=== PATIENT | male | born 1965 | race Caucasian/White ===

== ENCOUNTER 2017-05-15 14:07 | Inpatient (IN) | payer OTHER ==
[2017-05-15 19:08] VITALS: BMI 25.9
--- NOTE | 2017-05-15 22:51 | HP ---
CIWA Score - CIWA Score Nausea/Vomitin-Mild Nausea/No Vomiting Muscle Tremors: 4-Moderate,w/Arms Extend Anxiety: 4-Mod. Anxious/Guarded Agitation: 0-Normal Activity Paroxysmal Sweats: No Perspiration (feels cold) Orientation: 2-Disoriented Date<2 days Tacttile Disturbances: 2-Mild Itch/Numbness/Burn (hands and feet) Auditory Disturbances: 2-Mild Harshness/Frighten Visual Disturbances: 2-Mild Sensitivity Headache: 3-Moderate CIWA-Ar Total Score: 20 Admission ROS S - HPI Chief Complaint: I have a headache, I feel jittery, I have diarrhea and puking, 4 night without sleeping, I am here to detox. Allergies/Adverse Reactions: Allergies Allergy/AdvReac Type Severity Reaction Status Date / Time aripiprazole [From Abilify] Allergy Verified 05/15/17 23:30 chlorpromazine Allergy Verified 05/15/17 23:30 [From Thorazine] haloperidol [From Haldol] Allergy Verified 05/15/17 23:30 History of Present Illness: 51 yo male with nicotine, cocaine, alcohol and K2 dependence is here seeking detox. PHMX: SVT, peptic ulcer, GERD, Irritable Syndrome, migraines, seizure unspecified, Hypoglycemia, depression with oswald schizophrenia with psychotic features. Reports hx of OCD and self inflicting injuries due to cutting. Reports was just in coma for 15 days d/t a seizure related to drinking was discharged [facility] March 2017, patient unable to specified date. Last detox completed February 2017, does not recall the name of the facility. Report suffers from delirium when going through detox. Longest period of sobriety 11 months. Denies suicide / homicidal ideation, reports September 16, 2016 attempted suicide by cutting wrist. Exam Limitations: No Limitations - Ebola screening Have you traveled outside of the country in the last 21 days: No (N) Have you had contact with anyone from an Ebola affected area: No Have you been sick,other than usual withdrawal symptoms: No Do you have a fever: No - Review of Systems Constitutional: Chills, Loss of Appetite, Changes in sleep (reports 4 days without sleep), Unintentional Wgt. Loss (30 lb past 30 days d/t chronic diarrhea and vomitting) EENT: reports: Blurred Vision (wears glasses), Dental Problems (missing multiple teeth) Respiratory: reports: Cough (x 7 week), Productive cough Cardiac: reports: No Symptoms Reported GI: reports: Diarrhea, Nausea, Poor Appetite, Poor Fluid Intake, Vomiting : reports: No Symptoms Reported Musculoskeletal: reports: Joint Pain Integumentary: reports: No Symptoms Reported Neuro: reports: See HPI, Headache, Numbness (hands and feet), Tingling Endocrine: reports: No Symptoms Reported Hematology: reports: Anemia, Other (Low thiaminine) Psychiatric: reports: Orientated x3, Anxious Other Systems: Reviewed and Negative Patient History - Patient Medical History Hx Anemia: Yes Hx Asthma: No Hx Chronic Obstructive Pulmonary Disease (COPD): Yes Hx Cancer: No Hx Cardiac Disorders: Yes (SVT, HX [place] at 35 yo ) Hx Congestive Heart Failure: No Hx Hypertension: Yes Hx Hypercholesterolemia: No Hx Pacemaker: No HX Cerebrovascular Accident: Yes (35 years old ) Hx Seizures: Yes (alcohol r/t last seizure 05/13/17) Hx Dementia: No Hx Diabetes: No Hx Gastrointestinal Disorders: Yes (Peptic Ulcer, GERD ) Hx Liver Disease: Yes (Fatty Liver ) Hx Genitourinary Disorders: No Hx Sexually Transmitted Disorders: No Hx Renal Disease (ESRD): No Hx Thyroid Disease: No Hx Human Immunodeficiency Virus (HIV): No Hx Hepatitis C: No Hx Depression: Yes Hx Suicide Attempt: Yes (September 2016) Hx Bipolar Disorder: Yes Hx Schizophrenia: No Other Medical History: Hx of Positive PPD - Patient Surgical History Past Surgical History: Yes Hx Neurologic Surgery: No Hx Cataract Extraction: No Hx Cardiac Surgery: Yes (valve replacement) Hx Lung Surgery: No Hx Breast Surgery: No Hx Breast Biopsy: No Hx Abdominal Surgery: Yes (Groin Hernia) Hx Appendectomy: No Hx Cholecystectomy: No Hx Orthopedic Surgery: Yes (Left knee exploratory surgery ) Anesthesia Reaction: No - PPD History Previous Implant?: No (hx Positive PPD and treated with INH ) Documented Results: Positive w/o proof PPD to be Administered?: No - Reproductive History Patient is a Female of Child Bearing Age (11 -55 yrs old): No - Smoking Cessation Smoking history: Current every day smoker Aproximately how many cigarettes per day: 20 Hx Chewing Tobacco Use: No Initiated information on smoking cessation: Yes 'Breaking Loose' booklet given: 05/15/17 - Substance & Tx. History Hx Alcohol Use: Yes Hx Substance Use: Yes Substance Use Type: Alcohol, Cocaine Hx Substance Use Treatment: Yes (ec2016, does not recall the name of the facility) - Substances Abused Alcohol Route: Oral Frequency: Daily Amount used: 1 quart 151 or 300 Age of first use: 6 Date of Last Use: 05/15/17 Cocaine Route: Inhalation Frequency: 1-2 times per week Amount used: 1 eight ball Age of first use: 11 Date of Last Use: 05/13/17 Marijuana/Hashish Route: Smoking Frequency: 1-2 times per week Amount used: 4- 5 bags Age of first use: 51 (K2) Date of Last Use: 05/14/17 Family Disease History - Family Disease History Family Disease History: Other: Father (, alcohol r/t seizure), Mother ( , heroin, crystal meth ) Admission Physical Exam S - Vital Signs Vital Signs: Vital Signs - 24 hr 05/15/17 19:04 Temperature 97.9 F Pulse Rate 76 Respiratory 20 Rate Blood Pressure 131/70 - Physical General Appearance: Yes: Disheveled, Thin, Tremorous, Sweating, Anxious, Other ( malodorous) HEENTM: Yes: EOMI, Hearing grossly Normal, Normal ENT Inspection, Normocephalic , Normal Voice, SILVINO, Pharynx Normal, Tm's normal, Other (dry mucous membranes) Respiratory: Yes: Chest Non-Tender, Lungs Clear, Normal Breath Sounds, No Respiratory Distress, No Accessory Muscle Use Neck: Yes: No masses,lesions,Nodules, Trachea in good position Breast: Yes: Breast Exam Deferred Cardiology: Yes: Regular Rhythm, Regular Rate Abdominal: Yes: Normal Bowel Sounds, Non Tender, Flat, Soft Genitourinary: Yes: Within Normal Limits Back: Yes: Normal Inspection Musculoskeletal: Yes: full range of Motion, Gait Steady, Pelvis Stable Extremities: Yes: Normal Capillary Refill, Normal Range of Motion, Non-Tender, Tremors, Other (dirty nail beds) Neurological: Yes: freight broker II-XII NML intact, Fully Oriented, Alert, Motor Strength 5/5, Normal Response, Depressed Affect Integumentary: Yes: Normal Color, Dry, Warm, Other (multiple healed cut scars on both arms and chest) Lymphatic: Yes: Within Normal Limits - Addiitonal Findings: reports unable to tolerate Nicotine gum or patch d/t triggers psychosis - Diagnostic (1) Nicotine dependence Current Visit: Yes Status: Chronic Qualifiers: Nicotine product type: cigarettes (2) Cocaine dependence Current Visit: Yes Status: Chronic Qualifiers: Substance use status: uncomplicated Qualified Code(s): F14.20 - Cocaine dependence, uncomplicated (3) Cannabis dependence Current Visit: Yes Status: Chronic (4) Hx of supraventricular tachycardia Current Visit: Yes Status: Chronic (5) History of heart valve replacement Current Visit: Yes Status: Chronic (6) GERD (gastroesophageal reflux disease) Current Visit: Yes Status: Chronic Qualifiers: Esophagitis presence: esophagitis presence not specified Qualified Code(s) : K21.9 - Gastro-esophageal reflux disease without esophagitis (7) Peptic ulcer Current Visit: Yes Status: Chronic (8) History of positive PPD Current Visit: Yes Status: Acute (9) Upper respiratory tract infection Current Visit: Yes Status: Acute Qualifiers: URI type: unspecified URI Qualified Code(s): J06.9 - Acute upper respiratory infection, unspecified (10) Psychiatric disorder Current Visit: Yes Status: Suspected (11) Dehydration Current Visit: Yes Status: Acute (12) Weight loss Current Visit: Yes Status: Acute (13) Alcohol dependence with withdrawal, unspecified Current Visit: Yes Status: Acute Qualifiers: Complication of substance-induced condition: with unspecified complication Qualified Code(s): F10.239 - Alcohol dependence with withdrawal, unspecified (14) Hx of seizure disorder Current Visit: Yes Status: Chronic Cleared for Admission S - Detox or Rehab [facility] Level of Care: Medically Managed Detox Regimen/Protocol: Librium S Breath Alcohol Content Breath Alcohol Content: 0 Urine Drug Screen - Results Drug Screen Negative: No Urine Drug Screen Results: BAR-Barbiturates, BZO-Benzodiazepines
[2017-05-15] MEDS ORDERED: LOPERAMIDE HCL 2 MG CAPSULE PO PRN (22:57)
[2017-05-15] MEDS ORDERED: MAGNESIUM HYDROX 2400MG/30ML ORAL SUSPENSION 30 ML CUP PO PRN (22:57)
[2017-05-15] MEDS ORDERED: MAG HYDROX/AL HYDROX/SIMETH 30 ML UNIT-DOSE CUP PO PRN (22:57)
[2017-05-15] MEDS ORDERED: chlordiazePOXIDE HCL 25 MG CAPSULE PO ONE (22:57)
[2017-05-15] MEDS ORDERED: IBUPROFEN 400 MG TABLET (FP) PO PRN (22:57)
[2017-05-15] MEDS ORDERED: MENTHOL/PHENOL 1 EACH UD MM PRN (22:57)
[2017-05-15] MEDS ORDERED: guaiFENesin/D-METHORPHAN HB 10 ML UNIT-DOSE CUPS PO PRN (22:57)
[2017-05-15] MEDS ORDERED: P-EPHED 60MG/TRIPROLIDI 2.5MG TABLET PO PRN (22:57)
[2017-05-15] MEDS ORDERED: chlordiazePOXIDE HCL 25 MG CAPSULE PO PRN (22:57)
[2017-05-15] MEDS ORDERED: MAGNESIUM CITRATE 300 ML BOTTLE PO PRN (22:57)
[2017-05-15] MEDS ORDERED: ACETAMINOPHEN 325 MG TABLET (FP) PO PRN (22:57)
[2017-05-15] MEDS ORDERED: cloNIDine HCL 0.1 MG TABLET PO PRN (23:27)
[2017-05-15] MEDS ORDERED: ALBUTEROL SO4 18 GM HFA INHALER IH PRN (23:30)
[2017-05-16] MEDS: chlordiazePOXIDE HCL 25 MG CAPSULE PO SCH ×5 (00:03→23:08)
[2017-05-16 02:22] LABS: URINE APPEARANCE CLEAR; URINE BILIRUBIN NEGATIVE (NEGATIVE); URINE BLOOD NEGATIVE (NEGATIVE); URINE COLOR YELLOW; URINE GLUCOSE (UA) NEGATIVE (NEGATIVE); URINE KETONE NEGATIVE (NEGATIVE); URINE LEUK ESTERASE NEGATIVE (NEGATIVE); URINE NITRITE NEGATIVE (NEGATIVE); URINE PROTEIN NEGATIVE (NEGATIVE); URINE UROBILINOGEN NEGATIVE mg/dL (0.2-1.0)
[2017-05-16] MEDS ORDERED: METOPROLOL TARTRATE 25 MG TABLET (FP) PO SCH (10:00)
[2017-05-16] MEDS ORDERED: PRENATAL VITAMINS W/ FOLIC ACID TABLET (FP) PO SCH (10:00)
[2017-05-16] MEDS: GABAPENTIN 300 MG CAPSULE (FP) PO SCH ×2 (10:29→23:09)
[2017-05-16 11:03] LABS: HEMATOCRIT 34.6 % (35.4-49); HEMOGLOBIN 11.5 GM/dL (11.7-16.9); MCHC 33.3 g/dl (32.0-35.9); MEAN CELL VOLUME 90.2 fl (80-96); MEAN PLT VOLUME 9.8 fl (7.5-11.1); PLATELET COUNT 162 K/MM3 (134-434); RBC 3.84 M/mm3 (4.00-5.60); RDW 15.5 % (11.9-15.9); WHITE BLOOD COUNT 5.7 K/mm3 (4.0-10.0)
[2017-05-16 11:18] LABS: CHLORIDE 107 mmol/L (98-107); POTASSIUM 4.2 mmol/L (3.5-5.1); SODIUM 141 mmol/L (136-145)
[2017-05-16 11:42] LABS: ALBUMIN 3.2 g/dl (3.4-5.0); ALK PHOS 80 U/L (45-117); ANION GAP 6 (8-16); BILIRUBIN,TOTAL 0.4 mg/dL (0.2-1.0); BLOOD UREA NITROGEN 18 mg/dL (7-18); CALCIUM 8.4 mg/dL (8.5-10.1); CO2 28 mmol/L (21-32); CREATININE 0.6 mg/dL (0.7-1.3); GLUCOSE,RANDOM 82 mg/dL (74-106); SGOT/AST 14 U/L (15-37); SGPT/ALT 19 U/L (12-78); TOT PROT 5.9 g/dl (6.4-8.2)
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
--- NOTE | 2017-05-16 16:26 | PN ---
S CIWA - CIWA Score Nausea/Vomitin Muscle Tremors: 3 Anxiety: 3 Agitation: 2 Paroxysmal Sweats: No Perspiration Orientation: 0-Oriented Tacttile Disturbances: 0-None Auditory Disturbances: 3-Moderate Harsh/Frighten Visual Disturbances: 0-None Headache: 3-Moderate CIWA-Ar Total Score: 19 S Progress Note (SOAP) Subjective: Vomiting, Diarrhea, Tremors, Body Aches, H/A. Objective: PATIENT A & O X 3. NO ACUTE DISTRESS. 05/16/17 16:25 Vital Signs Temperature 96.7 F L 05/16/17 14:21 Pulse Rate 71 05/16/17 14:21 Respiratory Rate 18 05/16/17 14:21 Blood Pressure 124/81 05/16/17 14:21 O2 Sat by Pulse Oximetry (%) Laboratory Tests 05/15/17 05/16/17 05/16/17 23:16 07:50 07:50 WBC 5.7 RBC 3.84 L Hgb 11.5 L Hct 34.6 L MCV 90.2 MCH 30.0 MCHC 33.3 RDW 15.5 Plt Count 162 MPV 9.8 Sodium 141 Potassium 4.2 Chloride 107 Carbon Dioxide 28 Anion Gap 6 L BUN 18 Creatinine 0.6 L Creat Clearance w eGFR > 60 Random Glucose 82 Calcium 8.4 L Total Bilirubin 0.4 AST 14 L ALT 19 Alkaline Phosphatase 80 Total Protein 5.9 L Albumin 3.2 L Urine Color Yellow Urine Appearance Clear Urine pH 6.0 Ur Specific [place] 1.023 Urine Protein Negative Urine Glucose (UA) Negative Urine Ketones Negative Urine Blood Negative Urine Nitrite Negative Urine Bilirubin Negative Urine Urobilinogen Negative Ur Leukocyte Esterase Negative LABS NOTED. RPR RESULT PENDING. 05/16/17 16:26 Assessment: 05/16/17 16:26 WITHDRAWAL SYMPTOMS. Plan: CONTINUE DETOX.
--- NOTE | 2017-05-16 17:30 | PN ---
[facility] Progress Note Note: Psychiatry Attending's note : Episode of seizures. Rapid response is activated. Examined at bedside. Attended to by Dr Garcia. Patient now awake. Follows simple commands. Placed under 1:1 Constant Observation. Will be transferred to [facility]. For medical management. Seroquel + trazodone : discontinued. Discussed with treatment team.
--- NOTE | 2017-05-16 17:50 | PN ---
[facility] Progress Note Note: responded to rapid response patient became unresponsive may have seizure on arival patient is alert,no seizure activity pupil equal and react to light no head injury no trauma no pain in the nock normal heart sound lug clear,no wheezing abdomen soft no distension,no pain of tenderness no calf tenderness stated has seizure history on no medication now used to be on dilantin and phenobarb impression altered mental status r/o seizure alcohol dependence with uncomplicated withdrawal cocaine dependence cannabis dependence bp 157/79,p99,r20,t 97.2 to er at [facility] for evaluation,transported [facility],spoke with Mary Garcia
[2017-05-16 18:11] VITALS: BP 117/64; PULSE 78; TEMP 97.2
[2017-05-16] MEDS ORDERED: THIAMINE HCL 100 MG TABLET (FP) PO SCH (22:00)
[2017-05-16] MEDS ORDERED: traZODone HCL 50 MG TABLET (FP) PO SCH (22:00)
[2017-05-16] MEDS ORDERED: QUEtiapine FUMARATE 100 MG TABLET (FP) PO SCH (22:00)
[2017-05-17] MEDS: chlordiazePOXIDE HCL 25 MG CAPSULE PO SCH (06:02)
--- NOTE | 2017-05-17 14:30 | EKG ---
Test Reason : Blood Pressure : / mmHG Vent. Rate : 070 BPM Atrial Rate : 070 BPM P-R Int : 140 ms QRS Dur : 092 ms QT Int : 400 ms P-R-T Axes : 069 079 064 degrees QTc Int : 432 ms NORMAL SINUS RHYTHM NORMAL ECG NO PREVIOUS ECGS AVAILABLE Confirmed by MD AGUSTIN, AURORA ([id number]) on 05/17/2017 2:30:05 PM Referred By: Confirmed By:AURORA VELEZ MD
[2017-05-17] MEDS ORDERED: chlordiazePOXIDE 5 MG CAPSULE PO SCH (23:00)
[2017-05-18] MEDS ORDERED: chlordiazePOXIDE HCL 10 MG CAPSULE PO SCH (23:00)
== END 2017-05-16 23:50 | disposition short-term general hospital (02) | DRG 774 ==
LOC: YASAS 14:07 → Y3N 20:04
PROVIDERS: ADMIT Internal Medicine; ATTEND Internal Medicine
PROC: HZ2ZZZZ Detoxification Services for Substance Abuse Treatment (ICD-10-PCS; principal; 2017-05-15)
DX: F10.230 Alcohol dependence with withdrawal, uncomplicated (principal); F14.20 Cocaine dependence, uncomplicated; F12.20 Cannabis dependence, uncomplicated; F17.210 Nicotine dependence, cigarettes, uncomplicated; F19.24 Other psychoactive substance dependence with psychoactive substance-induced mood disorder; F20.9 Schizophrenia, unspecified; F43.10 Post-traumatic stress disorder, unspecified; J06.9 Acute upper respiratory infection, unspecified; R41.82 Altered mental status, unspecified; G40.909 Epilepsy, unspecified, not intractable, without status epilepticus; K21.9 Gastro-esophageal reflux disease without esophagitis; K27.9 Peptic ulcer, site unspecified, unspecified as acute or chronic, without hemorrhage or perforation; E86.0 Dehydration; G47.00 Insomnia, unspecified; D64.9 Anemia, unspecified; I10 Essential (primary) hypertension; K76.0 Fatty (change of) liver, not elsewhere classified; I25.2 Old myocardial infarction; Z95.2 Presence of prosthetic heart valve; Z87.898 Personal history of other specified conditions; Z88.8 Allergy status to other drugs, medicaments and biological substances; Z86.73 Personal history of transient ischemic attack (TIA), and cerebral infarction without residual deficits; Z91.5 Personal history of self-harm
CPT/HCPCS: 36415; 80053; 81003; 85027; 86593; 93005; 93010

== ENCOUNTER 2017-05-16 18:01 | Observation (INO) | payer OTHER ==
--- NOTE | 2017-05-16 18:12 | PDOC ---
History of Present Illness - General Chief Complaint: Seizure Stated Complaint: SEIZURE Time Seen by Provider: 05/16/17 18:06 History Source: Patient, EMS Exam Limitations: No Limitations - History of Present Illness Initial Comments: 05/16/17 19:32 Best Contact: None Pmhx: Seizure, HTN, SVT, GERD, peptic ulcer, irritable bowel syndrome, migraines , hypoglycemia, schizophrenia, depression Pshx: N/A Allergies: Chlorpromazine, aripiprazole Meds: Librium 50 mg 1 tab by mouth every 6 hours Neurontin 300 mg 1 tab by mouth twice a day Lopressor 25 mg 1 tab by mouth daily When necessary meds: Albuterol, Tylenol 650 mg, Robitussin, vitamins, Mylanta, Motrin, MOM, Imodium, clonidine 0.1mg Recreational drug use: Alcohol/cocaine/marijuana/K2 dependence Facility: [address] care/ Nurse: Janie Macedo 51-year-old male biba from [facility] detox unit. Patient's nurse at the detox unit states at approximately 1715 hrs. this evening, patient had a grand mal seizure lasting for approximately 30 seconds. Upon EMS' arrival to [facility], pt was A&O and c/o being tired. Pt states he cannot recall what happened prior to EMS arrival. Patient was informed by the facility nurse that he had a seizure and needs to be treated in the emergency department. Patient's last medication dosage was at 1029 hrs. this morning: Librium 50 mg, Neurontin 300 mg, Lopressor 25 mg. Patient denies headache, dizziness, lightheadedness, facial pains, rhinorrhea, nasal congestion, earaches, sore throat, cough, neck pain/back pain, chest pain , shortness of breath, abdominal pains, flank pains, urinary symptoms: Frequency /urgency/hesitancy, hematuria. Pt's only complaint is feeling tired, Patient states he suffers from delirium when going through detox. Patient denies suicidal/homicidal ideation. Pt states he's been admitted to ICU from his previous seizures. Timing/Duration: 1-3 hours Past History - Past Medical History Allergies/Adverse Reactions: Allergies Allergy/AdvReac Type Severity Reaction Status Date / Time aripiprazole [From [facility]] Allergy Verified 05/16/17 18:26 chlorpromazine Allergy Verified 05/16/17 18:26 [From Thorazine] haloperidol [From Haldol] Allergy Verified 05/16/17 18:26 Home Medications: Ambulatory Orders Albuterol Sulfate [Proair Hfa] 2 puff IH Q4H 05/15/17 Gabapentin [Gabapentin] 300 mg PO BID 05/15/17 Metoprolol Tartrate [Metoprolol Tartrate] 25 mg PO DAILY 05/15/17 Anemia: Yes Asthma: No Cancer: No Cardiac Disorders: Yes (SVT, HX [place] at 35 yo ) CVA: Yes (35 years old ) COPD: Yes CHF: No Dementia: No Diabetes: No GI Disorders: Yes (Peptic Ulcer, GERD ) Disorders: No HTN: Yes Hypercholesterolemia: No Liver Disease: Yes (Fatty Liver ) Seizures: Yes (alcohol r/t last seizure 05/13/17) Thyroid Disease: No - Surgical History Abdominal Surgery: Yes (Groin Hernia) Appendectomy: No Cardiac Surgery: Yes (valve replacement) Cholecystectomy: No Lung Surgery: No Neurologic Surgery: No Orthopedic Surgery: Yes (Left knee exploratory surgery ) - Suicide/Smoking/Psychosocial Hx Smoking History: Current every day smoker Number of Cigarettes Smoked Daily: 20 'Breaking Loose' booklet given: 05/15/17 Hx Alcohol Use: Yes Drug/Substance Use Hx: Yes Substance Use Type: Alcohol, Cocaine Hx Substance Use Treatment: Yes (2016, does not recall the name of the facility) Review of Systems - Review of Systems Able to Perform ROS?: Yes Comments:: 05/16/17 19:38 CONSTITUTIONAL: Absent: fever, chills, diaphoresis, generalized weakness, malaise, loss of appetite HEENT: Absent: rhinorrhea, nasal congestion, throat pain, throat swelling, difficulty swallowing, mouth swelling, ear pain, eye pain, visual Changes CARDIOVASCULAR: Absent: chest pain, loss of consciousness, palpitations, irregular heart rate, peripheral edema RESPIRATORY: Absent: cough, shortness of breath, dyspnea with exertion, orthopnea, wheezing, stridor, hemoptysis GASTROINTESTINAL: Absent: abdominal pain, abdominal distension, nausea, vomiting, diarrhea, constipation, melena, hematochezia GENITOURINARY: Absent: dysuria, frequency, urgency, hesitancy, hematuria, flank pain, genital pain MUSCULOSKELETAL: Absent: myalgia, arthralgia, joint swelling SKIN: Absent: rash, itching, pallor HEMATOLOGIC/IMMUNOLOGIC: Absent: easy bleeding, easy bruising, lymphadenopathy, frequent infections ENDOCRINE: Absent: unexplained weight gain, unexplained weight loss, heat intolerance, cold intolerance NEUROLOGIC: Absent: headache, focal weakness or paresthesias, dizziness, unsteady gait, seizure, mental status changes, bladder or bowel incontinence PSYCHIATRIC: Absent: anxiety, depression, suicidal or homicidal ideation, hallucinations. Is the patient limited Tongan proficient: No *Physical Exam - Physical Exam Comments: 05/16/17 19:38 GENERAL: Well developed, well nourished. Awake and alert. No acute distress. HEENT: Normocephalic, atraumatic. PERRLA, EOMI. No conjunctival pallor. Sclera are non- icteric. Moist mucous membranes. Oropharynx is clear. NECK: Supple. Full ROM. No JVD. Carotid pulses 2+ and symmetric, without bruits. No thyromegaly. No lymphadenopathy. CARDIOVASCULAR: Regular rate and rhythm. No murmurs, rubs, or gallops. Distal pulses are 2+ and symmetric. PULMONARY: No evidence of respiratory distress. Lungs clear to auscultation bilaterally. No wheezing, rales or rhonchi. ABDOMINAL: Soft. Non-tender. Non-distended. No rebound or guarding. No organomegaly. Normoactive bowel sounds. MUSCULOSKELETAL Normal range of motion at all joints. No bony deformities or tenderness. No CVA tenderness. EXTREMITIES: No cyanosis. No clubbing. No edema. No calf tenderness. SKIN: Warm and dry. Normal capillary refill. No rashes. No jaundice. NEUROLOGICAL: Alert, awake, appropriate. Cranial nerves 2-12 intact. No deficits to light touch and temperature in face, upper extremities and lower extremities. No motor deficits in the in face, upper extremities and lower extremities. Normoreflexic in the upper and lower extremities. Normal speech. Toes are down- going bilaterally. Gait is normal without ataxia. PSYCHIATRIC: Cooperative. Good eye contact. Appropriate mood and affect. Heart Score/ECG Review - History History: Slightly suspicious - Electrocardiogram EKG: Normal - Age Age: 45-65 - Risk Factors Risk Factors Heart Score: Yes Hx Hypertension, Yes Smoking History - ECG Intrepretation Rhythm: Regular Rhythm ED Treatment Course - LABORATORY CBC & Chemistry Diagram: 05/16/17 18:13 05/16/17 18:13 *DC/Admit/Observation/Transfer Diagnosis at time of Disposition: Seizure - Discharge Dispostion Condition at time of disposition: Guarded Admit: Yes - Referrals Referrals: ON STAFF,NOT [Primary Care Provider] - - Patient Instructions - Post Discharge Activity Progress Note - Progress Note Progress Note: 2102: Spoke to Dr. Williamson/hospitalist, will admit
[2017-05-16] MEDS ORDERED: SODIUM CHLORIDE 1,000 ML IV STA (18:13)
[2017-05-16 18:26] VITALS: BMI 22.0
[2017-05-16 18:42] LABS: BASO % 0.9 % (0-2.0); EOS % 3.4 % (0-4.5); HEMATOCRIT 35.9 % (35.4-49); LYMPH % 25.3 % (8-40); MCH 29.8 pg (25.7-33.7); MCHC 33.5 g/dl (32.0-35.9); MEAN CELL VOLUME 88.8 fl (80-96); MEAN PLT VOLUME 9.1 fl (7.5-11.1); MONO % 9.1 % (3.8-10.2); NEUT % 61.3 % (42.8-82.8); PLATELET COUNT 170 K/MM3 (134-434); RBC 4.04 M/mm3 (4.00-5.60); RDW 15.5 % (11.9-15.9); WHITE BLOOD COUNT 5.8 K/mm3 (4.0-10.0)
[2017-05-16] MEDS ORDERED: chlordiazePOXIDE HCL 25 MG CAPSULE PO ONE (19:07)
[2017-05-16] MEDS ORDERED: chlordiazePOXIDE HCL 25 MG CAPSULE ONE (19:14)
[2017-05-16 19:15] LABS: URINE APPEARANCE CLEAR; URINE BILIRUBIN NEGATIVE (NEGATIVE); URINE BLOOD NEGATIVE (NEGATIVE); URINE COLOR LTYELLOW; URINE GLUCOSE (UA) NEGATIVE (NEGATIVE); URINE KETONE NEGATIVE (NEGATIVE); URINE LEUK ESTERASE NEGATIVE (NEGATIVE); URINE NITRITE NEGATIVE (NEGATIVE); URINE PROTEIN NEGATIVE (NEGATIVE); URINE UROBILINOGEN NEGATIVE mg/dL (0.2-1.0)
--- NOTE | 2017-05-16 19:37 | PDOC ---
*Physical Exam - Vital Signs Last Vital Signs Temp Pulse Resp BP Pulse Ox 98.3 F 70 16 123/73 98 05/16/17 18:05 05/16/17 19:07 05/16/17 19:07 05/16/17 19:07 05/16/17 19:07 ED Treatment Course - LABORATORY CBC & Chemistry Diagram: 05/16/17 18:13 05/16/17 18:13 - ADDITIONAL ORDERS Additional order review: 05/16/17 18:13 RBC 4.04 MCV 88.8 MCHC 33.5 RDW 15.5 MPV 9.1 Neutrophils % 61.3 Lymphocytes % 25.3 Monocytes % 9.1 Eosinophils % 3.4 Basophils % 0.9 - Medications Given in the ED: ED Medications Discontinued Medications Generic Name Dose Route Start Last Admin Trade Name [place] PRN Reason Stop Dose Admin Chlordiazepoxide HCl 50 mg 05/16/17 19:07 05/16/17 19:17 Librium - PO 05/16/17 19:08 50 mg ONCE ONE Administration Sodium Chloride 1,000 mls @ 1,000 mls/hr 05/16/17 18:13 05/16/17 18:40 Normal Saline - IV 05/16/17 19:12 1,000 mls/hr ASDIR STA Administration Medical Decision Making - Medical Decision Making 05/16/17 19:19 Mr. Brand is a 51 yo M with a history of seizure disorder which he states was due to prior head trauma, h/o polysubstance abuse Pt presents to the ER from [facility] detox program (he was admitted there 2 days ago) He was noted to become unresponsive while in his bed? Pt is unable to give me any more history He can only tell me that he is sleepy Per the nurse who witnessed this, the patient had a seizure which lasted 30 seconds and pt awoke and immediately said "I had a seizure" Pt states that he has tried Keppra, Tegretol, Depakote in the past He does not tolerate these well He does best on Phenobarbital and Dilantin He was given an option to either continue drinking alcohol OR resuming the anti epileptics He chose to continue using alcohol 05/16/17 21:10 on examination: A&Ox 3, answers all questions appropriately RRR CTA Will place on observation Clinical Impression: Syncope vs seizure, initial presentation Pt seen by Midlevel Provider under my direct supervision Pt interviewed and examined I agree with plan as outlined by Midlevel Provider *DC/Admit/Observation/Transfer Diagnosis at time of Disposition: Seizure - Discharge Dispostion Condition at time of disposition: Guarded - Referrals Referrals: ON STAFF,NOT [Primary Care Provider] - - Patient Instructions - Post Discharge Activity
[2017-05-16 19:45] LABS: ALBUMIN 3.2 g/dl (3.4-5.0); ANION GAP 7 (8-16); BILIRUBIN,TOTAL 0.1 mg/dL (0.2-1.0); BLOOD UREA NITROGEN 18 mg/dL (7-18); CALCIUM 8.3 mg/dL (8.5-10.1); CHLORIDE 107 mmol/L (98-107); CO2 29 mmol/L (21-32); CREATININE 0.6 mg/dL (0.7-1.3); GLUCOSE,RANDOM 96 mg/dL (74-106); POTASSIUM 3.9 mmol/L (3.5-5.1); SGOT/AST 13 U/L (15-37); SGPT/ALT 19 U/L (12-78); SODIUM 143 mmol/L (136-145); TOT PROT 6.2 g/dl (6.4-8.2)
[2017-05-16 19:46] LABS: ALK PHOS 88 U/L (45-117)
[2017-05-16] MEDS ORDERED: PHENYTOIN SODIUM 100 MG/2 ML VIAL IVPB ONE (21:50)
[2017-05-16] MEDS ORDERED: levETIRAcetam 500 MG/5 ML INJECTION VIAL IVPB ONE (22:42)
--- NOTE | 2017-05-16 22:56 | HP ---
CHIEF COMPLAINT: seizure HISTORY OF PRESENT ILLNESS: 51-year-old male biba from [facility] detox unit. Patient's nurse at the detox unit states at approximately 1715 hrs. patient had a grand mal seizure lasting for approximately 30 seconds. Patient states that he has h/o seizure but his neurologist stopped his medication as he was on alcohol, cocain and k2. He is not on medications from many months. He also have episode of seizure couple of days ago. Today he denies aura, tongue bite, urine and fecal incontinence but has postictal confusion for 15-20min. His last alcohol drink was yesterday morning before he checked in for detox, cocain 2 days ago, k2 couple o days ago. Patient denies headache, dizziness, lightheadedness, facial pains, rhinorrhea, nasal congestion, earaches, sore throat, cough, neck pain/back pain, chest pain, shortness of breath, abdominal pains, flank pains, urinary symptoms: Frequency/urgency/hesitancy, hematuria. Pt 's only complaint is feeling tired, Patient states he suffers from delirium when going through detox. Patient denies suicidal/homicidal ideation. active medicines in detox Librium 50 mg 1 tab by mouth every 6 hours Neurontin 300 mg 1 tab by mouth twice a day Lopressor 25 mg 1 tab by mouth daily ER course was notable for: (1)cbc, cmp, cxr (2)librium po 50 mg Recent Travel: no PAST MEDICAL HISTORY:Seizure, HTN, SVT, GERD, peptic ulcer, irritable bowel syndrome, migraines, hypoglycemia, schizophrenia, depression PAST SURGICAL HISTORY: knee surgry, lower back and hernia Social History:Recreational drug use: Alcohol/cocaine/marijuana/K2 dependence Family History: Allergies aripiprazole [From Abilify] Allergy (Verified 05/16/17 18:26) chlorpromazine [From Thorazine] Allergy (Verified 05/16/17 18:26) haloperidol [From Haldol] Allergy (Verified 05/16/17 18:26) HOME MEDICATIONS: Home Medications Medication Instructions Recorded Albuterol Sulfate [Proair Hfa] 2 puff IH Q4H 05/15/17 Gabapentin [Gabapentin] 300 mg PO BID 05/15/17 Metoprolol Tartrate [Metoprolol 25 mg PO DAILY 05/15/17 Tartrate] REVIEW OF SYSTEMS CONSTITUTIONAL: Absent: fever, chills, diaphoresis, generalized weakness, malaise, loss of appetite, weight change HEENT: Absent: rhinorrhea, nasal congestion, throat pain, throat swelling, difficulty swallowing, mouth swelling, ear pain, eye pain, visual changes CARDIOVASCULAR: Absent: chest pain, syncope, palpitations, irregular heart rate, lightheadedness , peripheral edema RESPIRATORY: Absent: cough, shortness of breath, dyspnea with exertion, orthopnea, wheezing, stridor, hemoptysis GASTROINTESTINAL: Absent: abdominal pain, abdominal distension, nausea, vomiting, diarrhea, constipation, GENITOURINARY: Absent: dysuria, frequency, urgency, hesitancy, hematuria, flank pain, genital pain MUSCULOSKELETAL: Absent: myalgia, arthralgia, SKIN: Absent: rash, itching, pallor HEMATOLOGIC/IMMUNOLOGIC: Absent: easy bleeding, easy bruising, ENDOCRINE: Absent: unexplained weight gain, unexplained weight loss, NEUROLOGIC: Absent: headache, focal weakness or paresthesias, dizziness, unsteady gait, seizure, PSYCHIATRIC: Absent: anxiety, depression, PHYSICAL EXAMINATION Vital Signs - 24 hr 05/16/17 05/16/17 18:05 19:07 Temperature 98.3 F Pulse Rate 70 Pulse Rate [ 70 Apical] Respiratory 12 16 Rate Blood Pressure 132/81 Blood Pressure 123/73 [Right Arm] O2 Sat by Pulse 100 98 Oximetry (%) GENERAL: Awake, alert, and fully oriented, in no acute distress. HEAD: Normal with no signs of trauma. EYES: Pupils equal, round and reactive to light, no nystagmus EARS, NOSE, THROAT: oropharynx clear without exudates. Moist mucous membranes. NECK: Normal range of motion, supple without lymphadenopathy, JVD, or masses. LUNGS: Breath sounds equal, clear to auscultation bilaterally. No wheezes, and no crackles. No accessory muscle use. HEART: s1s2 normal ABDOMEN: Soft, nontender, not distended, normoactive bowel sounds, no guarding, no rebound, no masses. MUSCULOSKELETAL: Normal range of motion at all joints. UPPER EXTREMITIES: 2+ pulses, warm, well-perfused. LOWER EXTREMITIES: No calf tenderness. No peripheral edema. NEUROLOGICAL: Cranial nerves II-XII intact. PSYCHIATRIC: Cooperative. SKIN: Warm, dry, Laboratory Results - last 24 hr 05/16/17 05/16/17 05/16/17 18:13 18:13 18:51 WBC 5.8 RBC 4.04 Hgb 12.0 Hct 35.9 MCV 88.8 MCH 29.8 MCHC 33.5 RDW 15.5 Plt Count 170 MPV 9.1 Neutrophils % 61.3 Lymphocytes % 25.3 Monocytes % 9.1 Eosinophils % 3.4 Basophils % 0.9 Sodium 143 Potassium 3.9 Chloride 107 Carbon Dioxide 29 Anion Gap 7 L BUN 18 Creatinine 0.6 L Creat Clearance w eGFR > 60 Random Glucose 96 Calcium 8.3 L Total Bilirubin 0.1 L D AST 13 L ALT 19 Alkaline Phosphatase 88 Total Protein 6.2 L Albumin 3.2 L Urine Color Ltyellow Urine Appearance Clear Urine pH 7.0 Ur Specific [place] 1.021 Urine Protein Negative Urine Glucose (UA) Negative Urine Ketones Negative Urine Blood Negative Urine Nitrite Negative Urine Bilirubin Negative Urine Urobilinogen Negative Ur Leukocyte Esterase Negative ASSESSMENT/PLAN: 51-year-old male with PMH of seizure biba from [facility] detox ( for alcohol, cocain, k2) unit. Patient's nurse at the detox unit states at approximately 1715 hrs. patient had a grand mal seizure lasting for approximately 30 seconds. Seizure : could be due to alcohol withdraw loaded with phenytoin neurology consult npo for now take aspiration precaution fall risk and seizure precaution. repeat bmp, mg and phos bgm q12h alcohal/cocain/k2 detox librium protocol thiamine multivitamin h/o svt continue with lopressor 25 mg po daily fluid; banabag electrolyte; repeat in am nutrition: regular diet from am gi pro; zantac dvt pro; scd dispo: obs. Visit type - Emergency Visit Emergency Visit: Yes ED Registration Date: 05/16/17 Care time: The patient presented to the Emergency Department on the above date and was hospitalized for further evaluation of their emergent condition. - New Patient This patient is new to me today: Yes Date on this admission: 05/17/17 - Critical Care Critical Care patient: No Hospitalist Screening - Colonoscopy Questionnaire Colonoscopy Questionnaire: Colonoscopy Questionnaire - Patient: 50 - 75 years old and never had a screening colonoscopy: Unknown History of colon or rectal polyps, or CA: Unknown History of IBD, Crohn's disease or UC: Unknown History of abdominal radiation therapy as a child: Unknown - Relative: 1 with colon or rectal CA, or polyps at age 60 or younger: Unknown Colon or rectal CA diagnosed at age 45 or younger: Unknown Multiple relatives with colon or rectal CA: Unknown - Outcome: Screening Result: Negative Screen
[2017-05-16] MEDS ORDERED: chlordiazePOXIDE HCL 25 MG CAPSULE PO PRN (23:08)
[2017-05-16] MEDS ORDERED: FOLIC ACID INJECTION - 1 MG, THIAMINE HCL 100 MG, MULTIVIT INJECTION ADULT 10 ML in SOD... IVPB ONE (23:12)
--- NOTE | 2017-05-16 23:37 | PN ---
Teaching Attending Note Name of Resident: Jerry Camacho ATTENDING PHYSICIAN STATEMENT I saw and evaluated the patient. I reviewed the resident's note and discussed the case with the resident. I agree with the resident's findings and plan as documented. SUBJECTIVE: 51M BIBA from detox center (for ETOH MJ K2 cocaine use) for episode of generalized body shaking witnessed by the nurse for about 30seconds. afterwards patient felt fatigued and belief is he had a seizure He has a history of seizures in the past and has been on various antiepileptics. most recently admitted to [place] in March however he reports discharged off antiepilectics due to his ongoing substance use OBJECTIVE: Gen: NAD sleeping confortably RRR no m/r/g Lungs CTA abd Soft NTND Ext: no edema ASSESSMENT AND PLAN: 51M with history of seizures and off antiepileptics due to ssubstance use comes in after a likely seizure Neurology eval Phenytoin initiated per neuro IVF, thiamine folate MTV Librium taper Problem List - Problems (1) Alcohol dependence with withdrawal, unspecified Code(s): F10.239 - ALCOHOL DEPENDENCE WITH WITHDRAWAL, UNSPECIFIED Qualifiers: Complication of substance-induced condition: with unspecified complication Qualified Code(s): F10.239 - Alcohol dependence with withdrawal, unspecified (2) Seizure Code(s): R56.9 - UNSPECIFIED CONVULSIONS
[2017-05-17 06:35] LABS: HEMATOCRIT 34.1 % (35.4-49); HEMOGLOBIN 11.4 GM/dL (11.7-16.9); MCH 29.8 pg (25.7-33.7); MCHC 33.5 g/dl (32.0-35.9); MEAN PLT VOLUME 10.3 fl (7.5-11.1); PLATELET COUNT 160 K/MM3 (134-434); RBC 3.83 M/mm3 (4.00-5.60); RDW 15.4 % (11.9-15.9); WHITE BLOOD COUNT 6.1 K/mm3 (4.0-10.0)
[2017-05-17 07:02] LABS: ALBUMIN 2.9 g/dl (3.4-5.0); ANION GAP 10 (8-16); BILIRUBIN,TOTAL 0.3 mg/dL (0.2-1.0); BLOOD UREA NITROGEN 15 mg/dL (7-18); CALCIUM 8.5 mg/dL (8.5-10.1); CHLORIDE 108 mmol/L (98-107); CO2 27 mmol/L (21-32); CREATININE 0.6 mg/dL (0.7-1.3); GLUCOSE,RANDOM 81 mg/dL (74-106); MAGNESIUM 2.1 mg/dL (1.8-2.4); PHOSPHOROUS 3.2 mg/dL (2.5-4.9); POTASSIUM 4.3 mmol/L (3.5-5.1); SGOT/AST 24 U/L (15-37); SGPT/ALT 24 U/L (12-78); SODIUM 145 mmol/L (136-145)
[2017-05-17 07:03] LABS: ALK PHOS 77 U/L (45-117); TOT PROT 5.7 g/dl (6.4-8.2)
[2017-05-17] MEDS ORDERED: PHENYTOIN NA EXTENDED 100 MG CAPSULE (FP) PO SCH (08:30)
[2017-05-17] MEDS ORDERED: PT OWN MED DRAWER 7, Y5N ONE (10:05)
[2017-05-17] MEDS: MULTIVITAMINS (DAILY MVI) TABLET (FP) PO SCH ×2 (10:19→13:11)
[2017-05-17] MEDS: PHENYTOIN NA EXTENDED 100 MG CAPSULE (FP) PO SCH ×2 (10:19→13:09)
[2017-05-17] MEDS: THIAMINE HCL 100 MG TABLET (FP) PO SCH ×2 (10:19→13:11)
[2017-05-17] MEDS: RANITIDINE HCL 150 MG TABLET (FP) PO SCH ×2 (10:19→13:10)
[2017-05-17] MEDS: chlordiazePOXIDE HCL 25 MG CAPSULE PO SCH ×2 (10:20→13:10)
--- NOTE | 2017-05-17 12:29 | CONSULT ---
Consult - text type - Consultation Consultation Note: Neurology HISTORY OF PRESENT ILLNESS: 51-year-old male nataliia from [facility] detox unit. Patient's nurse at the detox unit stated at patient had a grand mal seizure lasting for approximately 30 seconds. Patient states that he has h/o seizure but reportedly his medication was stopped due to seizures being alcohol related. Reportedly seizure couple of days ago. Had extensive conversation with him regarding his regiment and states he had been on Phenobarb and Dilantin and has been off. Was unsure of exact doses. He wanted to be on both and was reluctant to take one. I discussed that at this time I would be concerned about care home toxicity with Phenobarb, as well as controlled substance. He was in agreement to start his dilantin 300mg daily and will not start phenobarb at this time. Recent Travel: no PAST MEDICAL HISTORY:Seizure, HTN, SVT, GERD, peptic ulcer, irritable bowel syndrome, migraines, hypoglycemia, schizophrenia, depression PAST SURGICAL HISTORY: knee surgry, lower back and hernia Social History:Recreational drug use: Alcohol/cocaine/marijuana/K2 dependence Family History: Allergies aripiprazole [From Abilify] Allergy (Verified 05/16/17 18:26) chlorpromazine [From Thorazine] Allergy (Verified 05/16/17 18:26) haloperidol [From Haldol] Allergy (Verified 05/16/17 18:26) HOME MEDICATIONS: Home Medications Medication Instructions Recorded Albuterol Sulfate [Proair Hfa] 2 puff IH Q4H 05/15/17 Gabapentin [Gabapentin] 300 mg PO BID 05/15/17 Metoprolol Tartrate [Metoprolol 25 mg PO DAILY 05/15/17 Tartrate] REVIEW OF SYSTEMS CONSTITUTIONAL: Absent: fever, chills, diaphoresis, generalized weakness, malaise, loss of appetite, weight change HEENT: Absent: rhinorrhea, nasal congestion, throat pain, throat swelling, difficulty swallowing, mouth swelling, ear pain, eye pain, visual changes CARDIOVASCULAR: Absent: chest pain, syncope, palpitations, irregular heart rate, lightheadedness , peripheral edema RESPIRATORY: Absent: cough, shortness of breath, dyspnea with exertion, orthopnea, wheezing, stridor, hemoptysis GASTROINTESTINAL: Absent: abdominal pain, abdominal distension, nausea, vomiting, diarrhea, constipation, GENITOURINARY: Absent: dysuria, frequency, urgency, hesitancy, hematuria, flank pain, genital pain MUSCULOSKELETAL: Absent: myalgia, arthralgia, SKIN: Absent: rash, itching, pallor HEMATOLOGIC/IMMUNOLOGIC: Absent: easy bleeding, easy bruising, ENDOCRINE: Absent: unexplained weight gain, unexplained weight loss, NEUROLOGIC: Absent: headache, focal weakness or paresthesias, dizziness, unsteady gait, seizure, PSYCHIATRIC: Absent: anxiety, depression, PHYSICAL EXAMINATION Vital Signs Temperature 98.6 F 05/17/17 06:00 Pulse Rate 56 L 05/17/17 06:00 Respiratory Rate 16 05/17/17 06:34 Blood Pressure 116/74 05/17/17 06:00 O2 Sat by Pulse Oximetry (%) 98 05/17/17 06:34 GENERAL: Awake, alert, and fully oriented, in no acute distress. HEAD: Normal with no signs of trauma. EYES: Pupils equal, round and reactive to light, no nystagmus EARS, NOSE, THROAT: oropharynx clear without exudates. Moist mucous membranes. NECK: Normal range of motion, supple without lymphadenopathy, JVD, or masses. LUNGS: Breath sounds equal, clear to auscultation bilaterally. No wheezes, and no crackles. No accessory muscle use. HEART: s1s2 normal ABDOMEN: Soft, nontender, not distended, normoactive bowel sounds, no guarding, no rebound, no masses. MUSCULOSKELETAL: Normal range of motion at all joints. UPPER EXTREMITIES: 2+ pulses, warm, well-perfused. LOWER EXTREMITIES: No calf tenderness. No peripheral edema. NEUROLOGICAL: Cranial nerves II-XII intact, strenght intact, sensory normal PSYCHIATRIC: Cooperative. SKIN: Warm, dry, CBCD WBC 6.1 K/mm3 (4.0-10.0) 05/17/17 05:00 RBC 3.83 M/mm3 (4.00-5.60) L 05/17/17 05:00 Hgb 11.4 GM/dL (11.7-16.9) L 05/17/17 05:00 Hct 34.1 % (35.4-49) L 05/17/17 05:00 MCV 89.0 fl (80-96) 05/17/17 05:00 MCHC 33.5 g/dl (32.0-35.9) 05/17/17 05:00 RDW 15.4 % (11.9-15.9) 05/17/17 05:00 Plt Count 160 K/MM3 (134-434) 05/17/17 05:00 MPV 10.3 fl (7.5-11.1) D 05/17/17 05:00 CMP Sodium 145 mmol/L (136-145) 05/17/17 05:00 Potassium 4.3 mmol/L (3.5-5.1) 05/17/17 05:00 Chloride 108 mmol/L (98-107) H 05/17/17 05:00 Carbon Dioxide 27 mmol/L (21-32) 05/17/17 05:00 Anion Gap 10 (8-16) 05/17/17 05:00 BUN 15 mg/dL (7-18) 05/17/17 05:00 Creatinine 0.6 mg/dL (0.7-1.3) L 05/17/17 05:00 Creat Clearance w eGFR > 60 (>60) 05/17/17 05:00 Calcium 8.5 mg/dL (8.5-10.1) 05/17/17 05:00 Total Bilirubin 0.3 mg/dL (0.2-1.0) D 05/17/17 05:00 AST 24 U/L (15-37) D 05/17/17 05:00 ALT 24 U/L (12-78) D 05/17/17 05:00 Alkaline Phosphatase 77 U/L (45-117) 05/17/17 05:00 Total Protein 5.7 g/dl (6.4-8.2) L 05/17/17 05:00 Albumin 2.9 g/dl (3.4-5.0) L 05/17/17 05:00 ASSESSMENT/PLAN: 51-year-old male biba from [facility] detox unit. Patient's nurse at the detox unit stated at patient had a grand mal seizure lasting for approximately 30 seconds. Patient states that he has h/o seizure but reportedly his medication was stopped due to seizures being alcohol related. Reportedly seizure couple of days ago. Had extensive conversation with him regarding his regiment and states he had been on Phenobarb and Dilantin and has been off. Was unsure of exact doses. He wanted to be on both and was reluctant to take one. I discussed that at this time I would be concerned about care home toxicity with Phenobarb, as well as controlled substance. He was in agreement to start his dilantin 300mg daily and will not start phenobarb at this time. extensively discussed cessation of Etoh and drugs. This is important for prevention of seizures, medication compliance discussed.
--- NOTE | 2017-05-17 12:33 | DS ---
Physical Exam: SUBJECTIVE: Patient seen and examined, no complaints, no further episodes of seizures inhouse. Denies any worsening anxiety, tremors. No chest pain, palpitations, dyspnea or dizziness. OBJECTIVE: Vital Signs Period Temp Pulse Resp BP Sys/Gillespie Pulse Ox Last 24 Hr 98.0 F-98.6 F 56-70 12-16 116-132/73-85 98-100 PHYSICAL EXAM GENERAL: The patient is awake, alert, and fully oriented, in no acute distress. HEAD: Normal with no signs of trauma. EYES: PERRL, extraocular movements intact, sclera anicteric, conjunctiva clear. ENT: Ears normal, nares patent, oropharynx clear without exudates, moist mucous membranes. NECK: Trachea midline, full range of motion, supple. LUNGS: Breath sounds equal, clear to auscultation bilaterally, no wheezes, no crackles, no accessory muscle use. HEART: Regular rate and rhythm, S1, S2 ABDOMEN: Soft, nontender, nondistended, normoactive bowel sounds, no guarding, no rebound EXTREMITIES: 2+ pulses, warm, well-perfused, no edema. NEUROLOGICAL: Cranial nerves II through XII grossly intact. Normal speech, facial symmetry, no pronator drift, mild upper extremities fine tremors PSYCH: Normal mood, normal affect. LABS Laboratory Results - last 24 hr 05/16/17 05/16/17 05/16/17 18:13 18:13 18:51 WBC 5.8 RBC 4.04 Hgb 12.0 Hct 35.9 MCV 88.8 MCH 29.8 MCHC 33.5 RDW 15.5 Plt Count 170 MPV 9.1 Neutrophils % 61.3 Lymphocytes % 25.3 Monocytes % 9.1 Eosinophils % 3.4 Basophils % 0.9 Sodium 143 Potassium 3.9 Chloride 107 Carbon Dioxide 29 Anion Gap 7 L BUN 18 Creatinine 0.6 L Creat Clearance w eGFR > 60 Random Glucose 96 Calcium 8.3 L Phosphorus Magnesium Total Bilirubin 0.1 L D AST 13 L ALT 19 Alkaline Phosphatase 88 Total Protein 6.2 L Albumin 3.2 L Urine Color Ltyellow Urine Appearance Clear Urine pH 7.0 Ur Specific [place] 1.021 Urine Protein Negative Urine Glucose (UA) Negative Urine Ketones Negative Urine Blood Negative Urine Nitrite Negative Urine Bilirubin Negative Urine Urobilinogen Negative Ur Leukocyte Esterase Negative 05/17/17 05/17/17 05:00 05:00 WBC 6.1 RBC 3.83 L Hgb 11.4 L Hct 34.1 L MCV 89.0 MCH 29.8 MCHC 33.5 RDW 15.4 Plt Count 160 MPV 10.3 D Neutrophils % Lymphocytes % Monocytes % Eosinophils % Basophils % Sodium 145 Potassium 4.3 Chloride 108 H Carbon Dioxide 27 Anion Gap 10 BUN 15 Creatinine 0.6 L Creat Clearance w eGFR > 60 Random Glucose 81 Calcium 8.5 Phosphorus 3.2 Magnesium 2.1 Total Bilirubin 0.3 D AST 24 D ALT 24 D Alkaline Phosphatase 77 Total Protein 5.7 L Albumin 2.9 L Urine Color Urine Appearance Urine pH Ur Specific [place] Urine Protein Urine Glucose (UA) Urine Ketones Urine Blood Urine Nitrite Urine Bilirubin Urine Urobilinogen Ur Leukocyte Esterase HOSPITAL COURSE: Date of Admission:05/16/17 Date of Discharge: 05/17/17 Minutes to complete discharge: 35 Discharge Summary Reason For Visit: SEIZURE Current Active Problems Seizure (Acute) Hospital Course: Patient was loaded with Dilantin. He was seen by neurology Dr. Jimenez and recommend Phenytoin 300 mg daily for now and outpatient follow up with his neurologist for further management. No further seizure episodes were noted inhouse. He continued on his librium detox with no new concerns. He is being discharged back to [facility] for continued detox. Condition: Stable - Instructions Diet, Activity, Other Instructions: You were seen by neurology and loaded with dilantin. You are recommended Phenytoin 300 mg daily and follow up with your neurologist outpatient. Do not drive, operate heavy machinery or be with children alone till further advised by your neurologist. Continue your detox per [facility]. Referrals: ON STAFF,NOT [Non Staff, Medical] - Disposition: TRANSFER ACUTE CARE/OTHER HOSP - Home Medications Comprehensive Discharge Medication List: Ambulatory Orders Albuterol Sulfate [Proair Hfa] 2 puff IH Q4H 05/15/17 Gabapentin 300 mg PO BID 05/15/17 Metoprolol Tartrate 25 mg PO DAILY 05/15/17 Chlordiazepoxide [Librium -] 50 mg PO Q6HPO 05/17/17 Multivitamins [Multivit ([facility] Formulary)] 1 tab PO DAILY tab 05/17/17 Phenytoin Na Extended [Dilantin -] 300 mg PO DAILY capsule 05/17/17 Thiamine HCl [Vitamin B1 -] 100 mg PO BID tablet 05/17/17 This patient is new to me today: Yes Date on this admission: 05/17/17 Emergency Visit: No Critical Care patient: No - Discharge Referral Referred to [facility] No
[2017-05-17 12:57] VITALS: BP 134/74; PULSE 67; TEMP 98
--- NOTE | 2017-05-17 14:23 | EKG ---
Test Reason : Blood Pressure : / mmHG Vent. Rate : 062 BPM Atrial Rate : 062 BPM P-R Int : 140 ms QRS Dur : 092 ms QT Int : 400 ms P-R-T Axes : 056 069 055 degrees QTc Int : 406 ms NORMAL SINUS RHYTHM WITH SINUS ARRHYTHMIA NORMAL ECG WHEN COMPARED WITH ECG OF 16-MAY-2017 00:21, NO SIGNIFICANT CHANGE WAS FOUND Confirmed by MD AGUSTIN, AURORA ([id number]) on 05/17/2017 2:23:08 PM Referred By: Confirmed By:AURORA VELEZ MD
[2017-05-18] MEDS ORDERED: chlordiazePOXIDE 5 MG CAPSULE PO SCH (11:00)
== END 2017-05-17 14:20 | disposition short-term general hospital (02) ==
LOC: JER 18:01 → INTOOBSV 21:02 → JERBED 21:02 → J5S 05-17 01:16
PROVIDERS: ADMIT Internal Medicine; ATTEND Hospitalist
PROC: 3E033GC Introduction of Other Therapeutic Substance into Peripheral Vein, Percutaneous Approach (ICD-10-PCS; principal; 2017-05-16)
PROC: 3E0337Z Introduction of Electrolytic and Water Balance Substance into Peripheral Vein, Percutaneous Approach (ICD-10-PCS; 2017-05-16)
DX: G40.909 Epilepsy, unspecified, not intractable, without status epilepticus (principal); F10.239 Alcohol dependence with withdrawal, unspecified; I10 Essential (primary) hypertension; K21.9 Gastro-esophageal reflux disease without esophagitis; K27.9 Peptic ulcer, site unspecified, unspecified as acute or chronic, without hemorrhage or perforation; F20.9 Schizophrenia, unspecified; K58.9 Irritable bowel syndrome, unspecified; F32.9 Major depressive disorder, single episode, unspecified; D64.9 Anemia, unspecified; K76.0 Fatty (change of) liver, not elsewhere classified; Z95.2 Presence of prosthetic heart valve; Z86.73 Personal history of transient ischemic attack (TIA), and cerebral infarction without residual deficits; Z88.8 Allergy status to other drugs, medicaments and biological substances; Z59.0 Homelessness
CPT/HCPCS: 36415; 80053; 81003; 82962; 83735; 84100; 85025; 85027; 93005; 93010; 96365; 96366; 96375; 99285-25; G0378

== ENCOUNTER 2017-05-17 18:05 | Inpatient (IN) | payer OTHER ==
[2017-05-17 18:19] VITALS: BMI 22.0
--- NOTE | 2017-05-17 21:24 | HP ---
CIWA Score - CIWA Score Nausea/Vomitin-Mild Nausea/No Vomiting Muscle Tremors: 4-Moderate,w/Arms Extend Anxiety: 4-Mod. Anxious/Guarded Agitation: 1-Slight > Activity Paroxysmal Sweats: 1-Minimal Palms Moist Orientation: 1-Uncertain about Date Tacttile Disturbances: 0-None Auditory Disturbances: 0-None Visual Disturbances: 0-None Headache: 3-Moderate CIWA-Ar Total Score: 15 Admission [facility] Chief Complaint: Alcohol withdrawal symptoms Allergies/Adverse Reactions: Allergies Allergy/AdvReac Type Severity Reaction Status Date / Time aripiprazole [From Abilify] Allergy Verified 05/17/17 22:41 chlorpromazine Allergy Verified 05/17/17 22:41 [From Thorazine] haloperidol [From Haldol] Allergy Verified 05/17/17 22:41 History of Present Illness: 51 years old male patient is being admitted from [facility] for continued detox where he was transferred to yesterday due to seizure activity. At [facility], he was loaded with Dilantin and seen by neurologist Dr. Jimenez, who recommended Phenytoin 300 mg daily for now and outpatient follow up with his neurologist for further management. He has been in previous detox and reports 11 months of sobriety. He has medical history of SVT, peptic ulcer, GERD, Irritable Syndrome, migraines, seizure unspecified, Hypoglycemia, depression with oswald schizophrenia with psychotic features. Patient states that he has not been taking required medications for his medical conditions because he is homeless and has no primary physician. Also, he has history of OCD and self inflicting injuries due to cutting. Patient reports suicidal attempt in September 2016 and denies suicidal ideation at this time. Exam Limitations: No Limitations - Ebola screening Have you traveled outside of the country in the last 21 days: No Have you had contact with anyone from an Ebola affected area: No Have you been sick,other than usual withdrawal symptoms: No Do you have a fever: No - Review of Systems Constitutional: Chills, Loss of Appetite, Malaise, Changes in sleep EENT: reports: Nose Congestion Respiratory: reports: No Symptoms reported Cardiac: reports: No Symptoms Reported GI: reports: Poor Appetite, Poor Fluid Intake, Abdominal cramping : reports: No Symptoms Reported Musculoskeletal: reports: Back Pain, Muscle Pain, Muscle Weakness Integumentary: reports: No Symptoms Reported Neuro: reports: Tingling, Tremors Endocrine: reports: No Symptoms Reported Hematology: reports: No Symptoms Reported Psychiatric: reports: Agitated, Anxious Other Systems: Reviewed and Negative Patient History - Patient Medical History Hx Anemia: Yes (Not on meds) Hx Asthma: No Hx Chronic Obstructive Pulmonary Disease (COPD): Yes (Not on meds) Hx Cancer: No Hx Cardiac Disorders: Yes (SVT, HX SD at 35 yo ) Hx Congestive Heart Failure: No Hx Hypertension: Yes (Not on meds) Hx Hypercholesterolemia: No Hx Pacemaker: No HX Cerebrovascular Accident: Yes (35 years old ) Hx Seizures: Yes (alcohol r/t last seizure 05/13/17- Dilantin) Hx Dementia: No Hx Diabetes: No Hx Gastrointestinal Disorders: Yes (- Not on medication) Hx Liver Disease: Yes (Fatty Liver ) Hx Genitourinary Disorders: No Hx Sexually Transmitted Disorders: No Hx Renal Disease (ESRD): No Hx Thyroid Disease: No Hx Human Immunodeficiency Virus (HIV): No Hx Hepatitis C: No Hx Depression: Yes (Not on medication) Hx Suicide Attempt: Yes (September 2016 - Denies suicidal ideation) Hx Bipolar Disorder: Yes (Not on medication) Hx Schizophrenia: No - Patient Surgical History Past Surgical History: Yes Hx Neurologic Surgery: No Hx Cataract Extraction: No Hx Cardiac Surgery: Yes (valve replacement) Hx Lung Surgery: No Hx Breast Surgery: No Hx Breast Biopsy: No Hx Abdominal Surgery: Yes (Groin Hernia) Hx Appendectomy: No Hx Cholecystectomy: No Hx Orthopedic Surgery: Yes (Left knee exploratory surgery ) Anesthesia Reaction: No - PPD History Previous Implant?: Yes (POSITIVE PPD) PPD to be Administered?: No - Reproductive History Patient is a Female of Child Bearing Age (11 -55 yrs old): No (MALE) - Smoking Cessation Smoking history: Current every day smoker Aproximately how many cigarettes per day: 20 Hx Chewing Tobacco Use: No Initiated information on smoking cessation: Yes 'Breaking Loose' booklet given: 05/17/17 - Substance & Tx. History Hx Alcohol Use: Yes Hx Substance Use: Yes Substance Use Type: Cocaine Hx Substance Use Treatment: Yes ([facility]) - Substances Abused Alcohol Route: Oral Frequency: Daily Amount used: RUM - 2 QUART DAILY Age of first use: 6 Date of Last Use: 05/14/17 Cocaine Route: Inhalation Frequency: Daily Amount used: $130 Age of first use: 11 Date of Last Use: 05/14/17 Family Disease History - Family Disease History Family Disease History: Other: Father (Alcohol r/t seizure - ), Mother ( heroin, crystal meth - ) [facility]ital Signs Vital Signs: Vital Signs - 24 hr 05/17/17 18:17 Temperature 97.6 F Pulse Rate 72 Respiratory 18 Rate Blood Pressure 120/72 - Physical General Appearance: Yes: Moderate Distress, Tremorous, Irritable, Sweating, Anxious HEENTM: Yes: EOMI, Normal Voice, SILVINO Respiratory: Yes: Lungs Clear, Normal Breath Sounds, No Respiratory Distress Neck: Yes: Supple Breast: Yes: Breast Exam Deferred Cardiology: Yes: Regular Rhythm, Regular Rate, S1, S2 Abdominal: Yes: Normal Bowel Sounds, Soft Genitourinary: Yes: Within Normal Limits Back: Yes: Normal Inspection Musculoskeletal: Yes: Within Normal Limits Extremities: Yes: Within Normal Limits Neurological: Yes: Normal Mood/Affect Integumentary: Yes: Warm Lymphatic: Yes: Within Normal Limits - Diagnostic (1) Alcohol dependence with withdrawal, unspecified Current Visit: Yes Status: Chronic Qualifiers: Complication of substance-induced condition: with unspecified complication Qualified Code(s): F10.239 - Alcohol dependence with withdrawal, unspecified (2) Cocaine dependence Current Visit: Yes Status: Chronic Qualifiers: Substance use status: uncomplicated Qualified Code(s): F14.20 - Cocaine dependence, uncomplicated (3) Nicotine dependence Current Visit: Yes Status: Acute Qualifiers: Nicotine product type: cigarettes Substance use status: uncomplicated Qualified Code(s): F17.210 - Nicotine dependence, cigarettes, uncomplicated (4) Seizure Current Visit: Yes Status: Chronic (5) Upper respiratory tract infection Current Visit: No Status: Chronic Qualifiers: URI type: unspecified URI Qualified Code(s): J06.9 - Acute upper respiratory infection, unspecified (6) GERD (gastroesophageal reflux disease) Current Visit: Yes Status: Chronic Qualifiers: Esophagitis presence: esophagitis presence not specified Qualified Code(s) : K21.9 - Gastro-esophageal reflux disease without esophagitis (7) History of heart valve replacement Current Visit: Yes Status: Chronic (8) History of positive PPD Current Visit: Yes Status: Chronic S Breath Alcohol Content Breath Alcohol Content: 0 Urine Drug Screen - Results Drug Screen Negative: No Urine Drug Screen Results: BZO-Benzodiazepines
[2017-05-17] MEDS ORDERED: MENTHOL/PHENOL 1 EACH UD MM PRN (21:53)
[2017-05-17] MEDS ORDERED: MAGNESIUM CITRATE 300 ML BOTTLE PO PRN (21:53)
[2017-05-17] MEDS ORDERED: NICOTINE POLACRILEX 2 MG GUM BC PRN (21:53)
[2017-05-17] MEDS ORDERED: MAGNESIUM HYDROX 2400MG/30ML ORAL SUSPENSION 30 ML CUP PO PRN (21:53)
[2017-05-17] MEDS ORDERED: LOPERAMIDE HCL 2 MG CAPSULE PO PRN (21:53)
[2017-05-17] MEDS ORDERED: ACETAMINOPHEN 325 MG TABLET (FP) PO PRN (21:53)
[2017-05-17] MEDS ORDERED: chlordiazePOXIDE HCL 25 MG CAPSULE PO PRN (21:53)
[2017-05-17] MEDS ORDERED: guaiFENesin/D-METHORPHAN HB 10 ML UNIT-DOSE CUPS PO PRN (21:53)
[2017-05-17] MEDS ORDERED: MAG HYDROX/AL HYDROX/SIMETH 30 ML UNIT-DOSE CUP PO PRN (21:53)
[2017-05-17] MEDS ORDERED: IBUPROFEN 400 MG TABLET (FP) PO PRN (21:53)
[2017-05-17] MEDS ORDERED: P-EPHED 60MG/TRIPROLIDI 2.5MG TABLET PO PRN (21:53)
[2017-05-17] MEDS ORDERED: ALBUTEROL SO4 18 GM HFA INHALER IH PRN (22:00)
[2017-05-17] MEDS: GABAPENTIN 300 MG CAPSULE (FP) PO SCH (22:56)
[2017-05-17] MEDS: THIAMINE HCL 100 MG TABLET (FP) PO SCH ×2 (22:57)
[2017-05-18 01:08] LABS: URINE APPEARANCE CLEAR; URINE BILIRUBIN NEGATIVE (NEGATIVE); URINE BLOOD NEGATIVE (NEGATIVE); URINE COLOR YELLOW; URINE GLUCOSE (UA) NEGATIVE (NEGATIVE); URINE KETONE TRACE (NEGATIVE); URINE LEUK ESTERASE NEGATIVE (NEGATIVE); URINE NITRITE NEGATIVE (NEGATIVE); URINE PROTEIN NEGATIVE (NEGATIVE); URINE UROBILINOGEN NEGATIVE mg/dL (0.2-1.0)
[2017-05-18] MEDS: chlordiazePOXIDE HCL 25 MG CAPSULE PO SCH ×5 (01:28→17:10)
--- NOTE | 2017-05-18 10:49 | EKG ---
Test Reason : Blood Pressure : / mmHG Vent. Rate : 068 BPM Atrial Rate : 068 BPM P-R Int : 136 ms QRS Dur : 092 ms QT Int : 402 ms P-R-T Axes : 069 075 059 degrees QTc Int : 427 ms NORMAL SINUS RHYTHM POSSIBLE LEFT ATRIAL ENLARGEMENT BORDERLINE ECG WHEN COMPARED WITH ECG OF 16-MAY-2017 19:55, NO SIGNIFICANT CHANGE WAS FOUND Confirmed by KIRSTNE LONG MD ([id number]) on 05/18/2017 10:49:14 AM Referred By: Glenn Yu Confirmed By:KIRSTEN LONG MD
[2017-05-18] MEDS: PHENYTOIN NA EXTENDED 100 MG CAPSULE (FP) PO SCH (11:07)
[2017-05-18] MEDS: NICOTINE 14 MG/24 HOURS TOPICAL PATCH TD SCH (11:08)
[2017-05-18] MEDS: THIAMINE HCL 100 MG TABLET (FP) PO SCH ×3 (11:08→23:17)
[2017-05-18] MEDS: PRENATAL VITAMINS W/ FOLIC ACID TABLET (FP) PO SCH (11:08)
[2017-05-18] MEDS: GABAPENTIN 300 MG CAPSULE (FP) PO SCH ×2 (11:08→21:29)
[2017-05-18] MEDS: METOPROLOL TARTRATE 25 MG TABLET (FP) PO SCH (11:08)
--- NOTE | 2017-05-18 11:58 | PN ---
Psychiatric Progress Note Vital Signs: Vital Signs Period Temp Pulse Resp BP Sys/Gillespie Pulse Ox Last 24 Hr 96.3 F-98.2 F 63-72 16-18 114-144/71-87 Date of Session: 05/18/17 Chief Complaint:: " I need my seizure medications." HPI: Return to [address] [place] [address] for this 51 y/o male,admitted to [facility] on and transferred to [facility] (05/16/17) for a seizure episode.Patient is currently receiving detoxification treatment for heroin,cocaine and cannabis dependence.See my admission note of 05/16/17 for details. ROS: Alert and fully oriented.Argumentative and irritable.No somatic complaints. Current Medications: Active Medications Generic Name Dose Route Start Last Admin Trade Name Freq PRN Reason Stop Dose Admin Acetaminophen 650 mg 05/17/17 21:53 Tylenol - PO Q4H PRN FEVER Al Hydroxide/Mg Hydroxide 30 ml 05/17/17 21:53 Mylanta Oral Suspension - PO Q6H PRN DYSPEPSIA Albuterol Sulfate 2 puff 05/17/17 22:00 Ventolin Hfa Inhaler - IH Q4H PRN SHORT OF BREATH/WHEEZING Chlordiazepoxide HCl 25 mg 05/17/17 21:53 05/17/17 22:57 Librium - PO 05/20/17 21:52 25 mg Q4H PRN Administration WITHDRAWAL(CONT SUBST) Chlordiazepoxide HCl 10 mg 05/19/17 23:00 Librium - PO 05/20/17 17:01 [id number] THERESA Chlordiazepoxide HCl 25 mg 05/18/17 00:15 05/18/17 11:08 Librium - PO 05/18/17 17:01 Not Given [id number] THERESA Chlordiazepoxide HCl 15 mg 05/18/17 23:00 Librium - PO 05/19/17 17:01 [id number] THERESA Eucalyptus/Menthol/Phenol/Sorbitol 1 each 05/17/17 21:53 Cepastat Lozenge - MM Q4H PRN SORE THROAT Gabapentin 300 mg 05/17/17 22:00 05/18/17 11:08 Neurontin - PO Not Given BID THERESA Guaifenesin 10 ml 05/17/17 21:53 Robitussin Dm - PO Q6H PRN COUGH Ibuprofen 400 mg 05/17/17 21:53 Motrin - PO Q6H PRN PAIN LEVEL 4-6 Loperamide HCl 4 mg 05/17/17 21:53 Imodium - PO Q6H PRN DIARRHEA Magnesium Citrate 300 ml 05/17/17 21:53 Citroma - PO Q48H PRN CONSTIPATION Magnesium Hydroxide 30 ml 05/17/17 21:53 Milk Of Magnesia - PO DAILY PRN CONSTIPATION Metoprolol Tartrate 25 mg 05/18/17 10:00 05/18/17 11:08 Lopressor - PO Not Given DAILY THERESA Nicotine 14 mg 05/18/17 10:00 05/18/17 11:08 Nicoderm Patch - TD Not Given DAILY THERESA Nicotine Polacrilex 2 mg 05/17/17 21:53 Nicorette Gum - BC Q2H PRN NICOTINE REPLACEMENT RX Phenytoin Sodium 300 mg 05/18/17 10:00 05/18/17 11:07 Dilantin - PO Not Given DAILY THERESA Multivit/Folic Acid/Iron 1 tab 05/18/17 10:00 05/18/17 11:08 Vitamins (Sjr) - PO Not Given DAILY THERESA Pseudoephedrine/Triprolidine 1 combo 05/17/17 21:53 Actifed - PO TID PRN NASAL CONGESTION Thiamine HCl 100 mg 05/17/17 22:00 05/17/17 22:57 Vitamin B1 - PO 100 mg HS THERESA Administration Thiamine HCl 100 mg 05/17/17 22:00 05/18/17 11:08 Vitamin B1 - PO Not Given BID THERESA Medication(s) Change(s): Patient requests re-inclusion of seroquel + remeron to his current regime of medications.Will resume seroquel 50 mg po daily + 100 mg po hs + remeron 15 mg po hs.Side effects/benefits of both drugs are discussed with the patient.Mr Brand is in agreement with this careplan. Current Side Effect: No Lab tests ordered: No Lab tests reviewed: Yes Provider note:: Chart reviewed.Medications revisited.Medical notes from [facility] : read and appreciated.Met with the patient at bedside.Mr Brand is found to be argumentative,visibly upset for not being prescribed his preferred combination of phenobarbital + phenytoin.He is somewhat loud,hypertalkative, accusatory and verbally abusive.Feels that he is the " victim of people's mistakes " and he argues that he is " not here to teach people how to do their jobs." Patient remains perseverative,dismissive of staff and adversarial.Uses profane language.No threats made.Mr Brand is reassured by this marketing copywriter.Advised to stay calm and patient.Informed that his needs/concerns are validated and steps taken to deliver services according to standards of care.Made aware, however,of the existence of boundaries and firm limits.Patient responded positively to this intervention.Shows no clinical evidence of psychosis.There are grounds to suspect an underlying character disorder (antisocial/borderline) in addition to schizophrenia.Seroquel is resumed with plan to titrate daily as clinically tolerated.Falls and seizures precautions. Total face to face time:: 35 Mental Status Exam - Mental Status Exam Alert and Oriented to: Time, Place, Person Cognitive Function: Good Patient Appearance: Unkempt, Disheveled Mood: Angry, Withdrawn, Irritable Affect: Mood Congruent Patient Behavior: Cooperative Speech Pattern: Clear Voice Loudness: Mildly Loud Thought Process: Goal Oriented Thought Disorder: Not Present Hallucinations: Denies Suicidal Ideation: Denies Homicidal Ideation: Denies Insight/Judgement: Poor Sleep: Poorly, Difficulty falling asleep Appetite: Good Gait/Station: Normal Psychiatric Treatment Plan - Problem List (1) Alcohol dependence with withdrawal, unspecified Current Visit: Yes Qualifiers: Complication of substance-induced condition: with unspecified complication Qualified Code(s): F10.239 - Alcohol dependence with withdrawal, unspecified (2) Cocaine dependence Current Visit: Yes Qualifiers: Substance use status: uncomplicated Qualified Code(s): F14.20 - Cocaine dependence, uncomplicated (3) Cannabis dependence Current Visit: Yes (4) Post traumatic stress disorder (PTSD) Current Visit: Yes Comment: As per self-report.On medications.Followed at [facility]. (5) Nicotine dependence Current Visit: Yes Qualifiers: Nicotine product type: cigarettes Substance use status: uncomplicated Qualified Code(s): F17.210 - Nicotine dependence, cigarettes, uncomplicated (6) Substance induced mood disorder Current Visit: Yes (7) Schizophrenia Current Visit: Yes (8) Insomnia Current Visit: Yes
--- NOTE | 2017-05-18 13:47 | PN ---
[facility] CIWA - CIWA Score Nausea/Vomitin Muscle Tremors: 4-Moderate,w/Arms Extend Anxiety: 5 Agitation: 5 Paroxysmal Sweats: 2 Orientation: 0-Oriented Tacttile Disturbances: 0-None Auditory Disturbances: 0-None Visual Disturbances: 0-None Headache: 0-None Present CIWA-Ar Total Score: 18 BHS Progress Note (SOAP) Subjective: shakes tremors Objective: 05/18/17 13:44 A & O x 3 Irritable mood labile; initially refused blood draw than accepted denies suicidal/ homicidal ideation; denies auditory nor visual hallucination 05/18/17 13:46 Assessment: 05/18/17 13:45 withdrawal sx substanced induced mood d/o 05/18/17 13:45 Plan: continue detox increased hydration
--- NOTE | 2017-05-18 13:52 | PN ---
[facility] Progress Note Note: pt refused xray re positive ppd. Will continue to encourage adherence
[2017-05-18 14:52] LABS: HEMATOCRIT 38.5 % (35.4-49); HEMOGLOBIN 12.9 GM/dL (11.7-16.9); MCH 30.4 pg (25.7-33.7); MCHC 33.6 g/dl (32.0-35.9); MEAN CELL VOLUME 90.5 fl (80-96); RBC 4.25 M/mm3 (4.00-5.60); RDW 15.5 % (11.9-15.9); WHITE BLOOD COUNT 7.4 K/mm3 (4.0-10.0)
[2017-05-18 15:02] LABS: ALBUMIN 3.5 g/dl (3.4-5.0); ANION GAP 11 (8-16); BLOOD UREA NITROGEN 18 mg/dL (7-18); CALCIUM 8.9 mg/dL (8.5-10.1); CHLORIDE 106 mmol/L (98-107); CO2 28 mmol/L (21-32); CREATININE 0.8 mg/dL (0.7-1.3); GLUCOSE,RANDOM 110 mg/dL (74-106); POTASSIUM 4.1 mmol/L (3.5-5.1); SGOT/AST 13 U/L (15-37); SGPT/ALT 23 U/L (12-78); SODIUM 145 mmol/L (136-145)
[2017-05-18 15:04] LABS: ALK PHOS 97 U/L (45-117); BILIRUBIN,TOTAL 0.4 mg/dL (0.2-1.0)
[2017-05-18 19:36] LABS: PLATELET COUNT 183 K/MM3 (134-434)
[2017-05-18 19:37] LABS: MEAN PLT VOLUME 10.9 fl (7.5-11.1)
[2017-05-18] MEDS: MIRTAZAPINE 15 MG TABLET (FP) PO SCH (21:28)
[2017-05-18] MEDS: QUEtiapine FUMARATE 100 MG TABLET (FP) PO SCH (21:29)
[2017-05-18] MEDS ORDERED: chlordiazePOXIDE HCL 25 MG CAPSULE PO SCH (23:00)
[2017-05-18] MEDS: chlordiazePOXIDE 5 MG CAPSULE PO SCH (23:17)
[2017-05-19] MEDS: chlordiazePOXIDE 5 MG CAPSULE PO SCH ×3 (06:01→17:07)
[2017-05-19] MEDS ORDERED: QUEtiapine FUMARATE 50 MG TABLET PO SCH (10:00)
[2017-05-19] MEDS: PHENYTOIN NA EXTENDED 100 MG CAPSULE (FP) PO SCH (10:59)
[2017-05-19] MEDS: METOPROLOL TARTRATE 25 MG TABLET (FP) PO SCH (10:59)
[2017-05-19] MEDS: NICOTINE 14 MG/24 HOURS TOPICAL PATCH TD SCH (11:07)
[2017-05-19] MEDS: GABAPENTIN 300 MG CAPSULE (FP) PO SCH ×2 (11:07→22:16)
[2017-05-19] MEDS: PRENATAL VITAMINS W/ FOLIC ACID TABLET (FP) PO SCH (11:07)
[2017-05-19] MEDS: DIPHENOXYLATE 2.5/ATROPINE.025 1 COMBO TABLET PO PRN (11:59)
[2017-05-19] MEDS: THIAMINE HCL 100 MG TABLET (FP) PO SCH ×3 (12:00→22:16)
--- NOTE | 2017-05-19 12:54 | PN ---
S CIWA - CIWA Score Nausea/Vomitin-No Nausea/No Vomiting Muscle Tremors: 3 Anxiety: 4-Mod. Anxious/Guarded Agitation: 3 Paroxysmal Sweats: No Perspiration Orientation: 0-Oriented Tacttile Disturbances: 3-Moderate Itch/Numb/Burn Auditory Disturbances: 0-None Visual Disturbances: 2-Mild Sensitivity Headache: 0-None Present CIWA-Ar Total Score: 15 BHS Progress Note (SOAP) Subjective: Tremors, Anxious, Diarrhea. Objective: PATIENT A & O X 3, OBSERVED AMBULATING ON UNIT. NO ACUTE DISTRESS. 05/19/17 12:52 Vital Signs Temperature 96.5 F L 05/19/17 09:32 Pulse Rate 78 05/19/17 09:32 Respiratory Rate 18 05/19/17 09:32 Blood Pressure 122/73 05/19/17 09:32 O2 Sat by Pulse Oximetry (%) Laboratory Tests 05/17/17 05/18/17 05/18/17 23:05 08:30 08:30 WBC 7.4 RBC 4.25 Hgb 12.9 D Hct 38.5 MCV 90.5 MCH 30.4 MCHC 33.6 RDW 15.5 Plt Count 183 MPV 10.9 Sodium 145 Potassium 4.1 Chloride 106 Carbon Dioxide 28 Anion Gap 11 BUN 18 Creatinine 0.8 D Creat Clearance w eGFR > 60 Random Glucose 110 H D Calcium 8.9 Total Bilirubin 0.4 D AST 13 L D ALT 23 Alkaline Phosphatase 97 D Total Protein 7.0 D Albumin 3.5 D Urine Color Yellow Urine Appearance Clear Urine pH 7.0 Ur Specific [place] 1.021 Urine Protein Negative Urine Glucose (UA) Negative Urine Ketones Trace H Urine Blood Negative Urine Nitrite Negative Urine Bilirubin Negative Urine Urobilinogen Negative Ur Leukocyte Esterase Negative LABS NOTED. RPR RESULT PENDING. 05/19/17 12:54 Assessment: 05/19/17 12:52 WITHDRAWAL SYMPTOMS. Plan: CONTINUE DETOX. PATIENT REPORTS MINIMAL EFFECT FOR DIARRHEA WITH IMMODIUM. SWITCH TO LOMOTIL PRN. INCREASE DAILY PO FLUID INTAKE.
[2017-05-19] MEDS: chlordiazePOXIDE HCL 10 MG CAPSULE PO SCH (22:16)
[2017-05-19] MEDS: MIRTAZAPINE 15 MG TABLET (FP) PO SCH (22:16)
[2017-05-19] MEDS: QUEtiapine FUMARATE 100 MG TABLET (FP) PO SCH (22:16)
[2017-05-19] MEDS ORDERED: chlordiazePOXIDE 5 MG CAPSULE PO SCH (23:00)
[2017-05-20] MEDS: chlordiazePOXIDE HCL 10 MG CAPSULE PO SCH ×3 (06:09→17:59)
[2017-05-20] MEDS: GABAPENTIN 300 MG CAPSULE (FP) PO SCH ×2 (10:26→22:46)
[2017-05-20] MEDS: METOPROLOL TARTRATE 25 MG TABLET (FP) PO SCH (10:26)
[2017-05-20] MEDS: NICOTINE 14 MG/24 HOURS TOPICAL PATCH TD SCH (10:26)
[2017-05-20] MEDS: PRENATAL VITAMINS W/ FOLIC ACID TABLET (FP) PO SCH (10:26)
[2017-05-20] MEDS: PHENYTOIN NA EXTENDED 100 MG CAPSULE (FP) PO SCH (10:26)
[2017-05-20] MEDS: THIAMINE HCL 100 MG TABLET (FP) PO SCH ×3 (10:27→22:48)
--- NOTE | 2017-05-20 13:16 | PN ---
[facility] Progress Note (SOAP) Subjective: Body Aches, Fatigue, Anxious. Objective: PATIENT A & O X 3, OBSERVED AMBULATING ON UNIT. 05/20/17 13:15 Vital Signs Temperature 98.1 F 05/20/17 09:13 Pulse Rate 64 05/20/17 09:13 Respiratory Rate 18 05/20/17 09:13 Blood Pressure 123/73 05/20/17 09:13 O2 Sat by Pulse Oximetry (%) Laboratory Tests 05/17/17 05/18/17 05/18/17 23:05 08:30 08:30 WBC 7.4 RBC 4.25 Hgb 12.9 D Hct 38.5 MCV 90.5 MCH 30.4 MCHC 33.6 RDW 15.5 Plt Count 183 MPV 10.9 Sodium 145 Potassium 4.1 Chloride 106 Carbon Dioxide 28 Anion Gap 11 BUN 18 Creatinine 0.8 D Creat Clearance w eGFR > 60 Random Glucose 110 H D Calcium 8.9 Total Bilirubin 0.4 D AST 13 L D ALT 23 Alkaline Phosphatase 97 D Total Protein 7.0 D Albumin 3.5 D Urine Color Yellow Urine Appearance Clear Urine pH 7.0 Ur Specific [place] 1.021 Urine Protein Negative Urine Glucose (UA) Negative Urine Ketones Trace H Urine Blood Negative Urine Nitrite Negative Urine Bilirubin Negative Urine Urobilinogen Negative Ur Leukocyte Esterase Negative RPR Titer 05/18/17 08:30 WBC RBC Hgb Hct MCV MCH MCHC RDW Plt Count MPV Sodium Potassium Chloride Carbon Dioxide Anion Gap BUN Creatinine Creat Clearance w eGFR Random Glucose Calcium Total Bilirubin AST ALT Alkaline Phosphatase Total Protein Albumin Urine Color Urine Appearance Urine pH Ur Specific [place] Urine Protein Urine Glucose (UA) Urine Ketones Urine Blood Urine Nitrite Urine Bilirubin Urine Urobilinogen Ur Leukocyte Esterase RPR Titer Nonreactive LABS NOTED. RESULTS OF CXR NOTED. 05/20/17 13:17 Assessment: 05/20/17 13:16 WITHDRAWAL SYMPTOMS. Plan: CONTINUE DETOX.
[2017-05-20] MEDS: DIPHENOXYLATE 2.5/ATROPINE.025 1 COMBO TABLET PO PRN (15:01)
[2017-05-20] MEDS: QUEtiapine FUMARATE 100 MG TABLET (FP) PO SCH (22:46)
[2017-05-20] MEDS: MIRTAZAPINE 15 MG TABLET (FP) PO SCH (23:17)
[2017-05-21 09:33] VITALS: BP 130/77; PULSE 70; TEMP 97.7
[2017-05-21] MEDS: GABAPENTIN 300 MG CAPSULE (FP) PO SCH (10:38)
[2017-05-21] MEDS: PRENATAL VITAMINS W/ FOLIC ACID TABLET (FP) PO SCH (10:38)
[2017-05-21] MEDS: PHENYTOIN NA EXTENDED 100 MG CAPSULE (FP) PO SCH (10:39)
[2017-05-21] MEDS: METOPROLOL TARTRATE 25 MG TABLET (FP) PO SCH (10:39)
[2017-05-21] MEDS: DIPHENOXYLATE 2.5/ATROPINE.025 1 COMBO TABLET PO PRN (10:39)
[2017-05-21] MEDS: THIAMINE HCL 100 MG TABLET (FP) PO SCH (10:39)
[2017-05-21] MEDS: NICOTINE 14 MG/24 HOURS TOPICAL PATCH TD SCH (10:39)
--- NOTE | 2017-05-21 16:35 | PN ---
S Progress Note (SOAP) Subjective: Patient denies any current Detox symptoms and reports that he is feeling well overall. Objective: PATIENT A & O X 3, OBSERVED AMBULATING ON UNIT. NO ACUTE DISTRESS. 05/21/17 16:34 Vital Signs Temperature 97.7 F 05/21/17 09:31 Pulse Rate 70 05/21/17 09:31 Respiratory Rate 20 05/21/17 09:31 Blood Pressure 130/77 05/21/17 09:31 O2 Sat by Pulse Oximetry (%) Laboratory Tests 05/17/17 05/18/17 05/18/17 23:05 08:30 08:30 WBC 7.4 RBC 4.25 Hgb 12.9 D Hct 38.5 MCV 90.5 MCH 30.4 MCHC 33.6 RDW 15.5 Plt Count 183 MPV 10.9 Sodium 145 Potassium 4.1 Chloride 106 Carbon Dioxide 28 Anion Gap 11 BUN 18 Creatinine 0.8 D Creat Clearance w eGFR > 60 Random Glucose 110 H D Calcium 8.9 Total Bilirubin 0.4 D AST 13 L D ALT 23 Alkaline Phosphatase 97 D Total Protein 7.0 D Albumin 3.5 D Urine Color Yellow Urine Appearance Clear Urine pH 7.0 Ur Specific [place] 1.021 Urine Protein Negative Urine Glucose (UA) Negative Urine Ketones Trace H Urine Blood Negative Urine Nitrite Negative Urine Bilirubin Negative Urine Urobilinogen Negative Ur Leukocyte Esterase Negative RPR Titer 05/18/17 08:30 WBC RBC Hgb Hct MCV MCH MCHC RDW Plt Count MPV Sodium Potassium Chloride Carbon Dioxide Anion Gap BUN Creatinine Creat Clearance w eGFR Random Glucose Calcium Total Bilirubin AST ALT Alkaline Phosphatase Total Protein Albumin Urine Color Urine Appearance Urine pH Ur Specific [place] Urine Protein Urine Glucose (UA) Urine Ketones Urine Blood Urine Nitrite Urine Bilirubin Urine Urobilinogen Ur Leukocyte Esterase RPR Titer Nonreactive LABS NOTED. Assessment: 05/21/17 16:34 DETOX PROTOCOL COMPLETED. Plan: PATIENT SCHEDULED TO BE DISCHARGED TODAY, WILL GO TO [facility] FOR AFTERCARE.
--- NOTE | 2017-05-21 16:36 | DS ---
[facility] Detox Discharge Summary Admission Date: 05/17/17 Discharge Date: 05/21/17 - History Present History: Alcohol Dependence, Cocaine Dependence Additional Comments: PATIENT GOING TO [facility] ([place] FOR AFTERCARE. PATIENT WAS DISCHARGED FROM DETOX UNIT IN STABLE MEDICAL CONDITION. Pertinent Past History: Nicotine Dependence, History of Heart Valve Replacement, History of SVT, History of CVA, PTSD, Depression, History of Seizure, URI, Hstory of Positive PPD, Insomnia, Schizophrenia. - Physical Exam Results Vital Signs: Vital Signs Temperature 97.7 F 05/21/17 09:31 Pulse Rate 70 05/21/17 09:31 Respiratory Rate 20 05/21/17 09:31 Blood Pressure 130/77 05/21/17 09:31 O2 Sat by Pulse Oximetry (%) Pertinent Admission Physical Exam Findings: WITHDRAWAL SYMPTOMS. Laboratory Tests 05/17/17 05/18/17 05/18/17 23:05 08:30 08:30 WBC 7.4 RBC 4.25 Hgb 12.9 D Hct 38.5 MCV 90.5 MCH 30.4 MCHC 33.6 RDW 15.5 Plt Count 183 MPV 10.9 Sodium 145 Potassium 4.1 Chloride 106 Carbon Dioxide 28 Anion Gap 11 BUN 18 Creatinine 0.8 D Creat Clearance w eGFR > 60 Random Glucose 110 H D Calcium 8.9 Total Bilirubin 0.4 D AST 13 L D ALT 23 Alkaline Phosphatase 97 D Total Protein 7.0 D Albumin 3.5 D Urine Color Yellow Urine Appearance Clear Urine pH 7.0 Ur Specific [place] 1.021 Urine Protein Negative Urine Glucose (UA) Negative Urine Ketones Trace H Urine Blood Negative Urine Nitrite Negative Urine Bilirubin Negative Urine Urobilinogen Negative Ur Leukocyte Esterase Negative RPR Titer 05/18/17 08:30 WBC RBC Hgb Hct MCV MCH MCHC RDW Plt Count MPV Sodium Potassium Chloride Carbon Dioxide Anion Gap BUN Creatinine Creat Clearance w eGFR Random Glucose Calcium Total Bilirubin AST ALT Alkaline Phosphatase Total Protein Albumin Urine Color Urine Appearance Urine pH Ur Specific [place] Urine Protein Urine Glucose (UA) Urine Ketones Urine Blood Urine Nitrite Urine Bilirubin Urine Urobilinogen Ur Leukocyte Esterase RPR Titer Nonreactive LABS NOTED. - Treatment Hospital Course: Detox Protocol Followed, Detoxed Safely, Responded well, Discharged Condition Good, Rehab Referral Accepted Patient has Accepted a Rehab Referral to: [facility] ( [place] - Medication Discharge Medications: Ambulatory Orders Albuterol Sulfate [Proair Hfa] 2 puff IH Q4H 05/15/17 Gabapentin 300 mg PO BID 05/15/17 Metoprolol Tartrate 25 mg PO DAILY 05/15/17 Multivitamins [Multivit ([facility] Formulary)] 1 tab PO DAILY tab 05/17/17 Phenytoin Na Extended [Dilantin -] 300 mg PO DAILY capsule 05/17/17 Thiamine HCl [Vitamin B1 -] 100 mg PO BID tablet 05/17/17 Mirtazapine [Remeron -] 15 mg PO HS #30 tablet 05/19/17 Quetiapine Fumarate [Seroquel] 100 mg PO HS #30 tablet 05/19/17 - Diagnosis (1) Nicotine dependence Status: Acute Qualifiers: Nicotine product type: cigarettes Substance use status: uncomplicated Qualified Code(s): F17.210 - Nicotine dependence, cigarettes, uncomplicated (2) Alcohol dependence with withdrawal, unspecified Status: Chronic Qualifiers: Complication of substance-induced condition: with unspecified complication Qualified Code(s): F10.239 - Alcohol dependence with withdrawal, unspecified (3) Cocaine dependence Status: Chronic Qualifiers: Substance use status: uncomplicated Qualified Code(s): F14.20 - Cocaine dependence, uncomplicated (4) GERD (gastroesophageal reflux disease) Status: Chronic Qualifiers: Esophagitis presence: esophagitis presence not specified Qualified Code(s) : K21.9 - Gastro-esophageal reflux disease without esophagitis (5) History of heart valve replacement Status: Chronic (6) History of positive PPD Status: Chronic (7) Seizure Status: Chronic (8) Upper respiratory tract infection Status: Chronic Qualifiers: URI type: unspecified URI Qualified Code(s): J06.9 - Acute upper respiratory infection, unspecified (9) Insomnia Status: Acute Qualifiers: Insomnia type: unspecified Qualified Code(s): G47.00 - Insomnia, unspecified (10) Substance induced mood disorder Status: Acute (11) Schizophrenia Status: Chronic Qualifiers: Schizophrenia type: unspecified Qualified Code(s): F20.9 - Schizophrenia, unspecified (12) Post traumatic stress disorder (PTSD) Status: Suspected - AMA Did Patient Leave Against Medical Advice: No
== END 2017-05-21 12:35 | disposition home or self-care (01) | DRG 774 ==
LOC: YASAS 18:05 → Y3N 21:06
PROVIDERS: ADMIT Internal Medicine; ATTEND Internal Medicine
PROC: HZ2ZZZZ Detoxification Services for Substance Abuse Treatment (ICD-10-PCS; principal; 2017-05-17)
DX: F10.230 Alcohol dependence with withdrawal, uncomplicated (principal); F14.20 Cocaine dependence, uncomplicated; F17.210 Nicotine dependence, cigarettes, uncomplicated; F19.24 Other psychoactive substance dependence with psychoactive substance-induced mood disorder; F20.9 Schizophrenia, unspecified; F43.10 Post-traumatic stress disorder, unspecified; K21.9 Gastro-esophageal reflux disease without esophagitis; J06.9 Acute upper respiratory infection, unspecified; G47.00 Insomnia, unspecified; G40.909 Epilepsy, unspecified, not intractable, without status epilepticus; R76.11 Nonspecific reaction to tuberculin skin test without active tuberculosis; I25.2 Old myocardial infarction; Z86.73 Personal history of transient ischemic attack (TIA), and cerebral infarction without residual deficits; Z88.8 Allergy status to other drugs, medicaments and biological substances; Z95.2 Presence of prosthetic heart valve; Z87.898 Personal history of other specified conditions; Z59.0 Homelessness
CPT/HCPCS: 36415; 71046-TC-FY; 80053; 81003; 85027; 86593; 93005; 93010

== ENCOUNTER 2022-05-15 10:40 | Inpatient (IN) | payer OTHER ==
[2022-05-15 11:06] VITALS: BMI 22.3
[2022-05-15] MEDS ORDERED: ALBUTEROL SO4 HFA INHALER IH PRN (12:03)
[2022-05-15] MEDS ORDERED: MAG HYDROX/AL HYDROX/SIMETH 30 ML UNIT-DOSE CUP PO PRN (12:04)
[2022-05-15] MEDS ORDERED: BISMUTH SUBSALICYLATE 262 MG/15 ML BTL PO PRN (12:04)
[2022-05-15] MEDS ORDERED: LOPERAMIDE HCL 2 MG CAPSULE PO PRN (12:04)
[2022-05-15] MEDS ORDERED: IBUPROFEN 400 MG TABLET (FP) PO PRN (12:04)
[2022-05-15] MEDS ORDERED: ONDANSETRON *ODT* 4 MG TABLET SL PRN (12:04)
[2022-05-15] MEDS ORDERED: BENZOCAINE/MENTHOL (CHLORASEPTIC ) LOZENGE MM PRN (12:04)
[2022-05-15] MEDS ORDERED: MAGNESIUM HYDROX 2400MG/30ML ORAL SUSPENSION 30 ML CUP PO PRN (12:04)
[2022-05-15] MEDS ORDERED: P-EPHED 60MG/TRIPROLIDI 2.5MG TABLET PO PRN (12:04)
[2022-05-15] MEDS ORDERED: DICYCLOMINE HCL 10 MG CAPSULE PO PRN (12:04)
[2022-05-15] MEDS ORDERED: hydrOXYzine PAMOATE 25 MG CAPSULE (FP) PO PRN (12:04)
[2022-05-15] MEDS ORDERED: ACETAMINOPHEN 325 MG TABLET (FP) PO PRN ×2 (12:04)
[2022-05-15] MEDS ORDERED: guaiFENesin 200 MG/10 ML 10 ML UNIT-DOSE CUPS PO PRN (12:04)
[2022-05-15] MEDS ORDERED: MELATONIN 5 MG TABLETS PO PRN (12:04)
[2022-05-15] MEDS ORDERED: POLYETHYLENE GLYCOL (HEALTHYLAX) 3350 17 GM PACKET PO PRN (12:04)
[2022-05-15] MEDS ORDERED: diazePAM 5 MG TABLET PO PRN (12:08)
[2022-05-15] MEDS: METHOCARBAMOL 500 MG TABLET PO PRN (13:13)
[2022-05-15] MEDS: ASPIRIN COATED 81 MG TABLET.EC PO SCH (15:09)
[2022-05-15] MEDS: levETIRAcetam 500 MG TABLET (FP) PO SCH ×2 (15:09→22:43)
[2022-05-15] MEDS: PANTOPRAZOLE 40 MG TABLET PO SCH (15:09)
[2022-05-15] MEDS: diazePAM 5 MG TABLET PO SCH ×2 (17:15→22:43)
[2022-05-15] MEDS: THIAMINE HCL 100 MG TABLET (FP) PO SCH (22:43)
[2022-05-15] MEDS: ATORVASTATIN CA 20 MG TABLET (FP) PO SCH (22:43)
[2022-05-15] MEDS: MOMETASONE FUROATE 220 MCG/IH INHALER IH SCH (22:43)
[2022-05-16] MEDS: diazePAM 5 MG TABLET PO SCH ×4 (05:46→22:08)
[2022-05-16] MEDS: MOMETASONE FUROATE 220 MCG/IH INHALER IH SCH ×2 (10:31→21:40)
[2022-05-16] MEDS: PANTOPRAZOLE 40 MG TABLET PO SCH (10:31)
[2022-05-16] MEDS: ASPIRIN COATED 81 MG TABLET.EC PO SCH (10:31)
[2022-05-16] MEDS: PRENATAL VITAMINS W/ FOLIC ACID TABLET (FP) PO SCH (10:31)
[2022-05-16] MEDS: levETIRAcetam 500 MG TABLET (FP) PO SCH ×2 (10:33→21:39)
[2022-05-16] MEDS: QUEtiapine FUMARATE 100 MG TABLET (FP) PO SCH ×2 (10:34→21:40)
[2022-05-16 11:11] LABS: HEMATOCRIT 42.3 % (35.4-49); HEMOGLOBIN 13.9 GM/dL (11.7-16.9); MCH 28.5 pg (25.7-33.7); MCHC 32.9 g/dl (32.0-35.9); MEAN CELL VOLUME 86.7 fl (80-96); PLATELET COUNT 131 10^3/uL (134-434); RBC 4.88 M/mm3 (4.00-5.60); RDW 14.7 % (11.9-15.9); WHITE BLOOD COUNT 8.1 K/mm3 (4.0-10.0)
[2022-05-16 11:30] LABS: ALBUMIN 3.3 g/dl (3.4-5.0); BLOOD UREA NITROGEN 16.9 mg/dL (7-18)
[2022-05-16 11:33] LABS: CREATININE 0.6 mg/dL (0.55-1.3)
[2022-05-16 11:35] LABS: BILIRUBIN,TOTAL 0.6 mg/dL (0.2-1); TOT PROT 6.5 g/dl (6.4-8.2)
[2022-05-16] MEDS: THIAMINE HCL 100 MG TABLET (FP) PO SCH (21:40)
[2022-05-16] MEDS: ATORVASTATIN CA 20 MG TABLET (FP) PO SCH (21:40)
[2022-05-17] MEDS: diazePAM 5 MG TABLET PO SCH ×3 (05:52→22:23)
[2022-05-17] MEDS: QUEtiapine FUMARATE 100 MG TABLET (FP) PO SCH ×2 (09:56→22:24)
[2022-05-17] MEDS: ASPIRIN COATED 81 MG TABLET.EC PO SCH (09:56)
[2022-05-17] MEDS: PANTOPRAZOLE 40 MG TABLET PO SCH (09:56)
[2022-05-17] MEDS: levETIRAcetam 500 MG TABLET (FP) PO SCH ×2 (09:56→22:24)
[2022-05-17] MEDS: MOMETASONE FUROATE 220 MCG/IH INHALER IH SCH ×2 (09:56→22:25)
[2022-05-17] MEDS: PRENATAL VITAMINS W/ FOLIC ACID TABLET (FP) PO SCH (09:56)
[2022-05-17] MEDS: THIAMINE HCL 100 MG TABLET (FP) PO SCH (22:23)
[2022-05-17] MEDS: ATORVASTATIN CA 20 MG TABLET (FP) PO SCH (22:24)
[2022-05-18] MEDS: diazePAM 5 MG TABLET PO SCH ×2 (05:34→17:42)
[2022-05-18] MEDS: MOMETASONE FUROATE 220 MCG/IH INHALER IH SCH ×2 (10:08→22:46)
[2022-05-18] MEDS: levETIRAcetam 500 MG TABLET (FP) PO SCH ×2 (10:08→22:46)
[2022-05-18] MEDS: IBUPROFEN 600 MG TABLET (FP) PO PRN (10:08)
[2022-05-18] MEDS: METHOCARBAMOL 500 MG TABLET PO PRN (10:08)
[2022-05-18] MEDS: ASPIRIN COATED 81 MG TABLET.EC PO SCH (10:08)
[2022-05-18] MEDS: PRENATAL VITAMINS W/ FOLIC ACID TABLET (FP) PO SCH (10:08)
[2022-05-18] MEDS: PANTOPRAZOLE 40 MG TABLET PO SCH (10:08)
[2022-05-18] MEDS ORDERED: levETIRAcetam 250 MG TABLET PO ONE (20:54)
[2022-05-18] MEDS ORDERED: QUEtiapine FUMARATE 100 MG TABLET (FP) PO SCH ×2 (22:00)
[2022-05-18] MEDS: THIAMINE HCL 100 MG TABLET (FP) PO SCH (22:46)
[2022-05-18] MEDS: ATORVASTATIN CA 20 MG TABLET (FP) PO SCH (22:46)
[2022-05-19] MEDS: IBUPROFEN 600 MG TABLET (FP) PO PRN (05:55)
[2022-05-19] MEDS ORDERED: diazePAM 5 MG TABLET PO ONE (06:00)
[2022-05-19 09:34] VITALS: BP 119/83; PULSE 85; RESP 18; TEMP 97.3
[2022-05-19] MEDS ORDERED: levETIRAcetam 250 MG TABLET PO ONE (09:48)
[2022-05-19] MEDS: MOMETASONE FUROATE 220 MCG/IH INHALER IH SCH (10:20)
[2022-05-19] MEDS: ASPIRIN COATED 81 MG TABLET.EC PO SCH (10:21)
[2022-05-19] MEDS: PANTOPRAZOLE 40 MG TABLET PO SCH (10:21)
[2022-05-19] MEDS: PRENATAL VITAMINS W/ FOLIC ACID TABLET (FP) PO SCH (10:21)
[2022-05-19] MEDS: levETIRAcetam 500 MG TABLET (FP) PO SCH (10:21)
== END 2022-05-19 10:40 | disposition home or self-care (01) | DRG 773 ==
LOC: YASAS 10:40 → Y6N 12:13
PROVIDERS: ADMIT Allergy & Immunology; ATTEND Surgery
PROC: HZ2ZZZZ Detoxification Services for Substance Abuse Treatment (ICD-10-PCS; principal; 2022-05-15)
DX: F10.230 Alcohol dependence with withdrawal, uncomplicated (principal); F11.20 Opioid dependence, uncomplicated; F14.20 Cocaine dependence, uncomplicated; F12.20 Cannabis dependence, uncomplicated; F17.210 Nicotine dependence, cigarettes, uncomplicated; F25.9 Schizoaffective disorder, unspecified; F19.282 Other psychoactive substance dependence with psychoactive substance-induced sleep disorder; F19.24 Other psychoactive substance dependence with psychoactive substance-induced mood disorder; F43.10 Post-traumatic stress disorder, unspecified; F90.9 Attention-deficit hyperactivity disorder, unspecified type; D64.9 Anemia, unspecified; G47.00 Insomnia, unspecified; J44.9 Chronic obstructive pulmonary disease, unspecified; K21.9 Gastro-esophageal reflux disease without esophagitis; Z86.11 Personal history of tuberculosis; Z86.73 Personal history of transient ischemic attack (TIA), and cerebral infarction without residual deficits; Z88.8 Allergy status to other drugs, medicaments and biological substances
CPT/HCPCS: 36415; 71045-TC-FY; 80053; 83036; 85027; 86780; 87811; C9803-CS; U0003; U0005

== ENCOUNTER 2022-10-28 12:27 | Inpatient (IN) | payer OTHER ==
[2022-10-28 13:52] VITALS: BMI 23.0
[2022-10-28] MEDS ORDERED: BENZONATATE 200 MG CAPSULE PO PRN (16:17)
[2022-10-28] MEDS ORDERED: ONDANSETRON *ODT* 4 MG TABLET SL PRN (16:17)
[2022-10-28] MEDS ORDERED: guaiFENesin 600 MG TABLET.ER (FP) PO PRN (16:17)
[2022-10-28] MEDS ORDERED: ACETAMINOPHEN 325 MG TABLET (FP) PO PRN (16:17)
[2022-10-28] MEDS ORDERED: NALOXONE HCL (KLOXXADO) 8 MG SPRAY NS PRN (16:17)
[2022-10-28] MEDS ORDERED: NALOXONE HCL 0.4 MG/ML VIAL IM PRN (16:17)
[2022-10-28] MEDS ORDERED: MAG HYDROX/AL HYDROX/SIMETH 30 ML UNIT-DOSE CUP PO PRN (16:17)
[2022-10-28] MEDS ORDERED: POLYETHYLENE GLYCOL (HEALTHYLAX) 3350 17 GM PACKET PO PRN (16:17)
[2022-10-28] MEDS ORDERED: diazePAM 5 MG TABLET PO PRN (16:17)
[2022-10-28] MEDS ORDERED: BISMUTH SUBSALICYLATE 524 MG/30 ML PO PRN (16:17)
[2022-10-28] MEDS ORDERED: hydrOXYzine PAMOATE 25 MG CAPSULE (FP) PO PRN (16:17)
[2022-10-28] MEDS ORDERED: IBUPROFEN 400 MG TABLET (FP) PO PRN (16:17)
[2022-10-28] MEDS ORDERED: BENZOCAINE/MENTHOL (CHLORASEPTIC ) LOZENGE MM PRN (16:17)
[2022-10-28] MEDS ORDERED: IBUPROFEN 600 MG TABLET (FP) PO PRN (16:17)
[2022-10-28] MEDS ORDERED: MAGNESIUM HYDROX 2400MG/30ML ORAL SUSPENSION 30 ML CUP PO PRN (16:17)
[2022-10-28] MEDS ORDERED: DICYCLOMINE HCL 10 MG CAPSULE PO PRN (16:17)
[2022-10-28] MEDS ORDERED: ALBUTEROL SO4 HFA INHALER IH PRN (16:30)
[2022-10-28] MEDS: PRENATAL VITAMINS W/ FOLIC ACID TABLET (FP) PO SCH (18:10)
[2022-10-28] MEDS: NICOTINE 21 MG/24 HOURS TOPICAL PATCH TD SCH (18:10)
[2022-10-28] MEDS: METHOCARBAMOL 500 MG TABLET PO PRN (18:10)
[2022-10-28] MEDS ORDERED: PATIENT'S OWN MEDICATION (NON-FORMULARY) (Levetiracetam [Levetiracetam] 750 MG Tablet) PO SCH (22:00)
[2022-10-28] MEDS ORDERED: PATIENT'S OWN MEDICATION (NON-FORMULARY) (Mometasone Furoate [Asmanex] 220 MCG Aer.Pow.Ba) IH SCH (22:00)
[2022-10-28] MEDS: levETIRAcetam 500 MG TABLET (FP) PO SCH (22:27)
[2022-10-28] MEDS: ATORVASTATIN CA 20 MG TABLET (FP) PO SCH (22:27)
[2022-10-28] MEDS: MELATONIN 5 MG TABLETS PO SCH (22:27)
[2022-10-28] MEDS: THIAMINE HCL 100 MG TABLET (FP) PO SCH (22:27)
[2022-10-28] MEDS: diazePAM 5 MG TABLET PO SCH (22:29)
[2022-10-28] MEDS: MOMETASONE FUROATE 220 MCG/IH INHALER IH SCH (22:39)
[2022-10-29] MEDS: diazePAM 5 MG TABLET PO SCH ×4 (05:45→22:42)
[2022-10-29] MEDS: PRENATAL VITAMINS W/ FOLIC ACID TABLET (FP) PO SCH (10:33)
[2022-10-29] MEDS: levETIRAcetam 500 MG TABLET (FP) PO SCH ×2 (10:33→22:41)
[2022-10-29] MEDS: METHOCARBAMOL 500 MG TABLET PO PRN (10:35)
[2022-10-29] MEDS: ASPIRIN COATED 81 MG TABLET.EC PO SCH (10:35)
[2022-10-29] MEDS: NICOTINE 21 MG/24 HOURS TOPICAL PATCH TD SCH (10:36)
[2022-10-29] MEDS: PANTOPRAZOLE 40 MG TABLET PO SCH (10:36)
[2022-10-29] MEDS: MOMETASONE FUROATE 220 MCG/IH INHALER IH SCH ×2 (10:43→22:47)
[2022-10-29 11:39] LABS: HEMATOCRIT 33.6 % (35.4-49); HEMOGLOBIN 11.3 GM/dL (11.7-16.9); MCH 29.4 pg (25.7-33.7); MCHC 33.6 g/dl (32.0-35.9); MEAN CELL VOLUME 87.7 fl (80-96); MEAN PLT VOLUME 10.1 fl (7.5-11.1); PLATELET COUNT 166 10^3/uL (134-434); RBC 3.84 M/mm3 (4.00-5.60); RDW 14.3 % (11.9-15.9); WHITE BLOOD COUNT 4.5 K/mm3 (4.0-10.0)
[2022-10-29 11:54] LABS: BLOOD UREA NITROGEN 20.8 mg/dL (7-18)
[2022-10-29 11:56] LABS: ALBUMIN 2.7 g/dl (3.4-5.0)
[2022-10-29 11:59] LABS: CREATININE 0.6 mg/dL (0.55-1.3)
[2022-10-29 12:01] LABS: BILIRUBIN,TOTAL 0.2 mg/dL (0.2-1); TOT PROT 5.7 g/dl (6.4-8.2)
[2022-10-29 12:03] LABS: CALCIUM 8.5 mg/dL (8.5-10.1)
[2022-10-29] MEDS: OLANZapine 5 MG TABLET PO SCH ×2 (12:21→22:42)
[2022-10-29] MEDS: LOPERAMIDE HCL 2 MG CAPSULE PO PRN (15:13)
[2022-10-29] MEDS: ATORVASTATIN CA 20 MG TABLET (FP) PO SCH (22:42)
[2022-10-29] MEDS: THIAMINE HCL 100 MG TABLET (FP) PO SCH (22:42)
[2022-10-29] MEDS: MELATONIN 5 MG TABLETS PO SCH (22:48)
[2022-10-30] MEDS: diazePAM 5 MG TABLET PO SCH ×3 (06:04→23:51)
[2022-10-30] MEDS: PRENATAL VITAMINS W/ FOLIC ACID TABLET (FP) PO SCH (09:58)
[2022-10-30] MEDS: PANTOPRAZOLE 40 MG TABLET PO SCH (09:59)
[2022-10-30] MEDS: ASPIRIN COATED 81 MG TABLET.EC PO SCH (09:59)
[2022-10-30] MEDS: METHOCARBAMOL 500 MG TABLET PO PRN (09:59)
[2022-10-30] MEDS: LOPERAMIDE HCL 2 MG CAPSULE PO PRN (09:59)
[2022-10-30] MEDS: levETIRAcetam 500 MG TABLET (FP) PO SCH ×2 (09:59→22:58)
[2022-10-30] MEDS: LACTULOSE 20 GM/30 ML UDC (FOR ORAL USE ONLY) PO SCH ×4 (10:00→23:14)
[2022-10-30] MEDS: MOMETASONE FUROATE 220 MCG/IH INHALER IH SCH ×2 (10:00→23:15)
[2022-10-30] MEDS: NICOTINE 21 MG/24 HOURS TOPICAL PATCH TD SCH (10:00)
[2022-10-30] MEDS: OLANZapine 5 MG TABLET PO SCH ×2 (10:20→22:58)
[2022-10-30] MEDS: THIAMINE HCL 100 MG TABLET (FP) PO SCH (22:58)
[2022-10-30] MEDS: MELATONIN 5 MG TABLETS PO SCH (23:14)
[2022-10-30] MEDS: ATORVASTATIN CA 20 MG TABLET (FP) PO SCH (23:14)
[2022-10-31] MEDS: diazePAM 5 MG TABLET PO SCH ×2 (06:11→17:52)
[2022-10-31] MEDS: PRENATAL VITAMINS W/ FOLIC ACID TABLET (FP) PO SCH (09:37)
[2022-10-31] MEDS: levETIRAcetam 500 MG TABLET (FP) PO SCH ×2 (09:38→22:40)
[2022-10-31] MEDS: NICOTINE 21 MG/24 HOURS TOPICAL PATCH TD SCH (09:38)
[2022-10-31] MEDS: PANTOPRAZOLE 40 MG TABLET PO SCH (09:38)
[2022-10-31] MEDS: ASPIRIN COATED 81 MG TABLET.EC PO SCH (09:38)
[2022-10-31] MEDS: OLANZapine 5 MG TABLET PO SCH ×2 (09:38→22:40)
[2022-10-31] MEDS: MOMETASONE FUROATE 220 MCG/IH INHALER IH SCH ×2 (09:38→22:50)
[2022-10-31] MEDS: LACTULOSE 20 GM/30 ML UDC (FOR ORAL USE ONLY) PO SCH ×4 (09:39→22:40)
[2022-10-31] MEDS: ATORVASTATIN CA 20 MG TABLET (FP) PO SCH (22:40)
[2022-10-31] MEDS: THIAMINE HCL 100 MG TABLET (FP) PO SCH (22:40)
[2022-10-31] MEDS: MELATONIN 5 MG TABLETS PO SCH (22:41)
[2022-11-01] MEDS ORDERED: diazePAM 5 MG TABLET PO ONE (06:00)
[2022-11-01] MEDS: PRENATAL VITAMINS W/ FOLIC ACID TABLET (FP) PO SCH (09:58)
[2022-11-01] MEDS: LACTULOSE 20 GM/30 ML UDC (FOR ORAL USE ONLY) PO SCH ×4 (09:58→22:47)
[2022-11-01] MEDS: PANTOPRAZOLE 40 MG TABLET PO SCH (09:59)
[2022-11-01] MEDS: ASPIRIN COATED 81 MG TABLET.EC PO SCH (09:59)
[2022-11-01] MEDS: levETIRAcetam 500 MG TABLET (FP) PO SCH ×2 (09:59→22:46)
[2022-11-01] MEDS: OLANZapine 5 MG TABLET PO SCH ×2 (10:01→22:46)
[2022-11-01] MEDS: NICOTINE 21 MG/24 HOURS TOPICAL PATCH TD SCH (10:01)
[2022-11-01] MEDS: MOMETASONE FUROATE 220 MCG/IH INHALER IH SCH ×2 (10:13→22:47)
[2022-11-01] MEDS: MELATONIN 5 MG TABLETS PO SCH (22:46)
[2022-11-01] MEDS: THIAMINE HCL 100 MG TABLET (FP) PO SCH (22:46)
[2022-11-01] MEDS: ATORVASTATIN CA 20 MG TABLET (FP) PO SCH (22:46)
[2022-11-02] MEDS: levETIRAcetam 500 MG TABLET (FP) PO SCH (10:40)
[2022-11-02] MEDS: ASPIRIN COATED 81 MG TABLET.EC PO SCH (10:40)
[2022-11-02] MEDS: PANTOPRAZOLE 40 MG TABLET PO SCH (10:41)
[2022-11-02] MEDS: OLANZapine 5 MG TABLET PO SCH (10:41)
[2022-11-02] MEDS: PRENATAL VITAMINS W/ FOLIC ACID TABLET (FP) PO SCH (10:41)
[2022-11-02] MEDS: LACTULOSE 20 GM/30 ML UDC (FOR ORAL USE ONLY) PO SCH (10:54)
[2022-11-02] MEDS: MOMETASONE FUROATE 220 MCG/IH INHALER IH SCH (10:54)
[2022-11-02] MEDS: NICOTINE 21 MG/24 HOURS TOPICAL PATCH TD SCH (10:55)
[2022-11-02 11:12] VITALS: BP 149/74; PULSE 75; RESP 18; TEMP 98.1
== END 2022-11-02 13:10 | disposition home or self-care (01) | DRG 774 ==
LOC: YASAS 12:27 → Y6N 17:32
PROVIDERS: ADMIT Allergy & Immunology; ATTEND Allergy & Immunology
PROC: HZ2ZZZZ Detoxification Services for Substance Abuse Treatment (ICD-10-PCS; principal; 2022-10-28)
DX: F10.230 Alcohol dependence with withdrawal, uncomplicated (principal); F14.20 Cocaine dependence, uncomplicated; F17.210 Nicotine dependence, cigarettes, uncomplicated; F25.9 Schizoaffective disorder, unspecified; F43.10 Post-traumatic stress disorder, unspecified; F19.24 Other psychoactive substance dependence with psychoactive substance-induced mood disorder; U07.1 COVID-19; G40.909 Epilepsy, unspecified, not intractable, without status epilepticus; J43.0 Unilateral pulmonary emphysema [MacLeod's syndrome]; J45.20 Mild intermittent asthma, uncomplicated; K21.9 Gastro-esophageal reflux disease without esophagitis; M54.50 Low back pain, unspecified; G89.29 Other chronic pain; Z95.4 Presence of other heart-valve replacement; Z86.11 Personal history of tuberculosis; Z87.11 Personal history of peptic ulcer disease; Z86.73 Personal history of transient ischemic attack (TIA), and cerebral infarction without residual deficits; Z88.8 Allergy status to other drugs, medicaments and biological substances
CPT/HCPCS: 36415; 80053; 82140; 85027; 86780; 87635; Q0162

== ENCOUNTER 2023-01-15 11:05 | Inpatient (IN) | payer OTHER ==
[2023-01-15 12:43] VITALS: BMI 26.4
[2023-01-15] MEDS ORDERED: COLLOIDAL OATMEAL 1 BAR EACH TP PRN (14:12)
[2023-01-15] MEDS ORDERED: guaiFENesin 600 MG TABLET.ER (FP) PO PRN (14:12)
[2023-01-15] MEDS ORDERED: MAGNESIUM HYDROX 2400MG/30ML ORAL SUSPENSION 30 ML CUP PO PRN (14:12)
[2023-01-15] MEDS ORDERED: BENZOCAINE/MENTHOL (CHLORASEPTIC ) LOZENGE MM PRN (14:12)
[2023-01-15] MEDS ORDERED: LOPERAMIDE HCL 2 MG CAPSULE PO PRN (14:12)
[2023-01-15] MEDS ORDERED: IBUPROFEN 400 MG TABLET (FP) PO PRN (14:12)
[2023-01-15] MEDS ORDERED: POLYETHYLENE GLYCOL (HEALTHYLAX) 3350 17 GM PACKET PO PRN (14:12)
[2023-01-15] MEDS ORDERED: IBUPROFEN 600 MG TABLET (FP) PO PRN (14:12)
[2023-01-15] MEDS ORDERED: hydrOXYzine PAMOATE 25 MG CAPSULE (FP) PO PRN (14:12)
[2023-01-15] MEDS ORDERED: NALOXONE HCL (KLOXXADO) 8 MG SPRAY NS PRN (14:12)
[2023-01-15] MEDS ORDERED: MAG HYDROX/AL HYDROX/SIMETH 30 ML UNIT-DOSE CUP PO PRN (14:12)
[2023-01-15] MEDS ORDERED: BENZONATATE 200 MG CAPSULE PO PRN (14:12)
[2023-01-15] MEDS ORDERED: NALOXONE HCL 0.4 MG/ML VIAL IM PRN (14:12)
[2023-01-15] MEDS ORDERED: PRENATAL VITAMINS W/ FOLIC ACID TABLET (FP) PO ONE (14:53)
[2023-01-15] MEDS: NICOTINE 21 MG/24 HOURS TOPICAL PATCH TD SCH (14:55)
[2023-01-15] MEDS: PRENATAL VITAMINS W/ FOLIC ACID TABLET (FP) PO SCH (14:55)
[2023-01-15] MEDS: MELATONIN 5 MG TABLETS PO SCH (23:46)
[2023-01-15] MEDS: THIAMINE HCL 100 MG TABLET (FP) PO SCH (23:46)
[2023-01-16] MEDS: NICOTINE 21 MG/24 HOURS TOPICAL PATCH TD SCH (10:00)
[2023-01-16] MEDS: PRENATAL VITAMINS W/ FOLIC ACID TABLET (FP) PO SCH (10:00)
[2023-01-16 10:49] LABS: CHLORIDE 109 mmol/L (98-107); POTASSIUM 4.2 mmol/L (3.5-5.1); SODIUM 144 mmol/L (136-145)
[2023-01-16 10:59] LABS: HEMATOCRIT 39.5 % (35.4-49); HEMOGLOBIN 13.1 GM/dL (11.7-16.9); MCH 29.2 pg (25.7-33.7); MCHC 33.3 g/dl (32.0-35.9); MEAN CELL VOLUME 87.9 fl (80-96); MEAN PLT VOLUME 9.5 fl (7.5-11.1); PLATELET COUNT 154 10^3/uL (134-434); RDW 15.6 % (11.9-15.9); WHITE BLOOD COUNT 5.6 K/mm3 (4.0-10.0)
[2023-01-16 11:00] LABS: GLUCOSE,RANDOM 99 mg/dL (74-106)
[2023-01-16 11:01] LABS: BILIRUBIN,TOTAL 0.2 mg/dL (0.2-1); SGPT/ALT 19 U/L (13-61)
[2023-01-16 11:02] LABS: ALBUMIN 3.3 g/dl (3.4-5.0); ALK PHOS 81 U/L (45-117); BLOOD UREA NITROGEN 16.2 mg/dL (7-18); CALCIUM 8.9 mg/dL (8.5-10.1)
[2023-01-16 11:03] LABS: ANION GAP 7 mmol/L (4-13); CO2 27 mmol/L (21-32); CREATININE 0.8 mg/dL (0.55-1.3); SGOT/AST 13 U/L (15-37); TOT PROT 6.5 g/dl (6.4-8.2)
[2023-01-16 11:49] LABS: URINE APPEARANCE CLEAR; URINE BILIRUBIN NEGATIVE (NEGATIVE); URINE COLOR YELLOW; URINE GLUCOSE (UA) NEGATIVE (NEGATIVE); URINE KETONE TRACE (NEGATIVE); URINE LEUK ESTERASE NEGATIVE (NEGATIVE); URINE NITRITE NEGATIVE (NEGATIVE); URINE PROTEIN NEGATIVE (NEGATIVE); URINE UROBILINOGEN 0.2 mg/dL (0.2-1.0)
[2023-01-16] MEDS ORDERED: ALBUTEROL SO4 HFA INHALER IH PRN (12:17)
[2023-01-16 12:46] LABS: SYPHILIS W/ RPR CONF NON-REACTIVE (NONREACTIVE)
[2023-01-16] MEDS: ASPIRIN 81 MG CHEWABLE TABLETS PO SCH (13:16)
[2023-01-16] MEDS: OLANZapine 10 MG TABLET PO SCH ×2 (13:16→21:29)
[2023-01-16] MEDS: GABAPENTIN 400 MG CAPSULE PO SCH ×2 (13:17→21:29)
[2023-01-16] MEDS: THIAMINE HCL 100 MG TABLET (FP) PO SCH (21:29)
[2023-01-16] MEDS: ATORVASTATIN CA 40 MG TABLET (FP) PO SCH (21:29)
[2023-01-16] MEDS: traZODone HCL 50 MG TABLET (FP) PO SCH (21:29)
[2023-01-16] MEDS: MELATONIN 5 MG TABLETS PO SCH (21:30)
[2023-01-17] MEDS: GABAPENTIN 400 MG CAPSULE PO SCH ×3 (06:50→21:25)
[2023-01-17] MEDS: OLANZapine 10 MG TABLET PO SCH ×2 (09:34→21:24)
[2023-01-17] MEDS: PRENATAL VITAMINS W/ FOLIC ACID TABLET (FP) PO SCH (09:34)
[2023-01-17] MEDS: FAMOTIDINE 20 MG TABLET PO SCH (09:34)
[2023-01-17] MEDS: NICOTINE 21 MG/24 HOURS TOPICAL PATCH TD SCH (09:34)
[2023-01-17] MEDS: ASPIRIN 81 MG CHEWABLE TABLETS PO SCH (09:34)
[2023-01-17] MEDS: THIAMINE HCL 100 MG TABLET (FP) PO SCH (21:24)
[2023-01-17] MEDS: traZODone HCL 50 MG TABLET (FP) PO SCH (21:25)
[2023-01-17] MEDS: ATORVASTATIN CA 40 MG TABLET (FP) PO SCH (21:25)
[2023-01-17] MEDS: MELATONIN 5 MG TABLETS PO SCH (21:26)
[2023-01-18] MEDS: GABAPENTIN 400 MG CAPSULE PO SCH ×3 (07:09→21:02)
[2023-01-18] MEDS: ASPIRIN 81 MG CHEWABLE TABLETS PO SCH (09:49)
[2023-01-18] MEDS: FAMOTIDINE 20 MG TABLET PO SCH (09:49)
[2023-01-18] MEDS: PRENATAL VITAMINS W/ FOLIC ACID TABLET (FP) PO SCH (09:50)
[2023-01-18] MEDS: NICOTINE 21 MG/24 HOURS TOPICAL PATCH TD SCH (09:50)
[2023-01-18] MEDS: OLANZapine 10 MG TABLET PO SCH ×2 (09:50→21:02)
[2023-01-18] MEDS: traZODone HCL 50 MG TABLET (FP) PO SCH (21:02)
[2023-01-18] MEDS: ATORVASTATIN CA 40 MG TABLET (FP) PO SCH (21:02)
[2023-01-18] MEDS: THIAMINE HCL 100 MG TABLET (FP) PO SCH (21:02)
[2023-01-18] MEDS: MELATONIN 5 MG TABLETS PO SCH (21:02)
[2023-01-19] MEDS: GABAPENTIN 400 MG CAPSULE PO SCH ×3 (06:33→22:05)
[2023-01-19] MEDS: NICOTINE 21 MG/24 HOURS TOPICAL PATCH TD SCH (09:49)
[2023-01-19] MEDS: FAMOTIDINE 20 MG TABLET PO SCH (09:49)
[2023-01-19] MEDS: OLANZapine 10 MG TABLET PO SCH ×2 (09:49→22:06)
[2023-01-19] MEDS: ASPIRIN 81 MG CHEWABLE TABLETS PO SCH (09:49)
[2023-01-19] MEDS: PRENATAL VITAMINS W/ FOLIC ACID TABLET (FP) PO SCH (09:49)
[2023-01-19] MEDS ORDERED: LORazepam 2 MG/ML SDV VIAL IM ONE (18:15)
[2023-01-19] MEDS: MELATONIN 5 MG TABLETS PO SCH (22:05)
[2023-01-19] MEDS: ATORVASTATIN CA 40 MG TABLET (FP) PO SCH (22:05)
[2023-01-19] MEDS: traZODone HCL 50 MG TABLET (FP) PO SCH (22:05)
[2023-01-19] MEDS: THIAMINE HCL 100 MG TABLET (FP) PO SCH (22:06)
[2023-01-20] MEDS: GABAPENTIN 400 MG CAPSULE PO SCH (06:25)
[2023-01-20] MEDS: ACETAMINOPHEN 325 MG TABLET (FP) PO PRN (06:25)
[2023-01-20] MEDS: NICOTINE 21 MG/24 HOURS TOPICAL PATCH TD SCH (09:57)
[2023-01-20] MEDS: PRENATAL VITAMINS W/ FOLIC ACID TABLET (FP) PO SCH (09:57)
[2023-01-20] MEDS: OLANZapine 10 MG TABLET PO SCH ×2 (09:57→21:32)
[2023-01-20] MEDS: FAMOTIDINE 20 MG TABLET PO SCH (09:57)
[2023-01-20] MEDS: ASPIRIN 81 MG CHEWABLE TABLETS PO SCH (09:57)
[2023-01-20] MEDS ORDERED: BUPRENORPHINE HCL 150 MCG, BUPRENORPHINE HCL 75 MCG BC PRN (13:23)
[2023-01-20] MEDS ORDERED: BUPRENORPHINE HCL 150 MCG, BUPRENORPHINE HCL 75 MCG BC ONE (13:45)
[2023-01-20] MEDS: GABAPENTIN 300 MG CAPSULE PO SCH ×2 (14:15→21:32)
[2023-01-20] MEDS: THIAMINE HCL 100 MG TABLET (FP) PO SCH (21:32)
[2023-01-20] MEDS: ATORVASTATIN CA 40 MG TABLET (FP) PO SCH (21:32)
[2023-01-20] MEDS: traZODone HCL 50 MG TABLET (FP) PO SCH (21:32)
[2023-01-20] MEDS: MELATONIN 5 MG TABLETS PO SCH (21:33)
[2023-01-21] MEDS ORDERED: BUPRENORPHINE HCL 150 MCG, BUPRENORPHINE HCL 75 MCG BC PRN
[2023-01-21] MEDS: GABAPENTIN 300 MG CAPSULE PO SCH ×3 (06:20→21:36)
[2023-01-21] MEDS: BUPRENORPHINE HCL 150 MCG, BUPRENORPHINE HCL 75 MCG BC SCH ×2 (06:21→17:34)
[2023-01-21] MEDS: PRENATAL VITAMINS W/ FOLIC ACID TABLET (FP) PO SCH (09:57)
[2023-01-21] MEDS: NICOTINE 21 MG/24 HOURS TOPICAL PATCH TD SCH (09:57)
[2023-01-21] MEDS: ASPIRIN 81 MG CHEWABLE TABLETS PO SCH (09:58)
[2023-01-21] MEDS: FAMOTIDINE 20 MG TABLET PO SCH (09:58)
[2023-01-21] MEDS: OLANZapine 10 MG TABLET PO SCH ×2 (09:58→21:35)
[2023-01-21] MEDS: MELATONIN 5 MG TABLETS PO SCH (21:35)
[2023-01-21] MEDS: THIAMINE HCL 100 MG TABLET (FP) PO SCH (21:35)
[2023-01-21] MEDS: traZODone HCL 50 MG TABLET (FP) PO SCH (21:36)
[2023-01-21] MEDS: ATORVASTATIN CA 40 MG TABLET (FP) PO SCH (21:36)
[2023-01-22] MEDS: GABAPENTIN 300 MG CAPSULE PO SCH ×3 (06:18→21:26)
[2023-01-22] MEDS: BUPRENORPHINE HCL 450 MCG FILM BC SCH ×2 (06:26→17:38)
[2023-01-22] MEDS: OLANZapine 10 MG TABLET PO SCH ×2 (09:56→21:28)
[2023-01-22] MEDS: FAMOTIDINE 20 MG TABLET PO SCH (09:56)
[2023-01-22] MEDS: ASPIRIN 81 MG CHEWABLE TABLETS PO SCH (09:56)
[2023-01-22] MEDS: NICOTINE 21 MG/24 HOURS TOPICAL PATCH TD SCH (09:56)
[2023-01-22] MEDS: PRENATAL VITAMINS W/ FOLIC ACID TABLET (FP) PO SCH (09:56)
[2023-01-22] MEDS: ACETAMINOPHEN 325 MG TABLET (FP) PO PRN (16:02)
[2023-01-22] MEDS: MELATONIN 5 MG TABLETS PO SCH (21:26)
[2023-01-22] MEDS: THIAMINE HCL 100 MG TABLET (FP) PO SCH (21:26)
[2023-01-22] MEDS: ATORVASTATIN CA 40 MG TABLET (FP) PO SCH (21:27)
[2023-01-22] MEDS: traZODone HCL 50 MG TABLET (FP) PO SCH ×2 (21:41→22:30)
[2023-01-23] MEDS: GABAPENTIN 300 MG CAPSULE PO SCH ×3 (07:09→21:17)
[2023-01-23] MEDS: FAMOTIDINE 20 MG TABLET PO SCH (09:45)
[2023-01-23] MEDS: NICOTINE 21 MG/24 HOURS TOPICAL PATCH TD SCH (09:45)
[2023-01-23] MEDS: OLANZapine 10 MG TABLET PO SCH ×2 (09:45→21:17)
[2023-01-23] MEDS: ASPIRIN 81 MG CHEWABLE TABLETS PO SCH (09:45)
[2023-01-23] MEDS: PRENATAL VITAMINS W/ FOLIC ACID TABLET (FP) PO SCH (09:45)
[2023-01-23] MEDS: BUPRENORPHINE/NALOXONE 2 MG/0.5 MG FILM PACKET SL SCH (09:46)
[2023-01-23] MEDS: ATORVASTATIN CA 40 MG TABLET (FP) PO SCH (21:17)
[2023-01-23] MEDS: THIAMINE HCL 100 MG TABLET (FP) PO SCH (21:17)
[2023-01-23] MEDS: traZODone HCL 50 MG TABLET (FP) PO SCH (21:17)
[2023-01-23] MEDS: MELATONIN 5 MG TABLETS PO SCH (21:18)
[2023-01-24] MEDS ORDERED: BUPRENORPHINE/NALOXONE 4 MG/1 MG FILM PACKET SL SCH ×3 (06:00→10:00)
[2023-01-24] MEDS: GABAPENTIN 300 MG CAPSULE PO SCH ×3 (06:09→21:53)
[2023-01-24] MEDS: ACETAMINOPHEN 325 MG TABLET (FP) PO PRN (10:04)
[2023-01-24] MEDS: PRENATAL VITAMINS W/ FOLIC ACID TABLET (FP) PO SCH (10:04)
[2023-01-24] MEDS: BUPRENORPHINE/NALOXONE 2 MG/0.5 MG FILM PACKET SL SCH (10:05)
[2023-01-24] MEDS: FAMOTIDINE 20 MG TABLET PO SCH (10:05)
[2023-01-24] MEDS: NICOTINE 21 MG/24 HOURS TOPICAL PATCH TD SCH (10:05)
[2023-01-24] MEDS: OLANZapine 10 MG TABLET PO SCH ×2 (10:05→21:53)
[2023-01-24] MEDS: ASPIRIN 81 MG CHEWABLE TABLETS PO SCH (10:05)
[2023-01-24] MEDS: MELATONIN 5 MG TABLETS PO SCH (21:52)
[2023-01-24] MEDS: ATORVASTATIN CA 40 MG TABLET (FP) PO SCH (21:53)
[2023-01-24] MEDS: THIAMINE HCL 100 MG TABLET (FP) PO SCH (21:53)
[2023-01-24] MEDS: traZODone HCL 50 MG TABLET (FP) PO SCH (21:53)
[2023-01-25] MEDS: GABAPENTIN 300 MG CAPSULE PO SCH ×3 (06:43→21:52)
[2023-01-25] MEDS: BUPRENORPHINE/NALOXONE 2 MG/0.5 MG FILM PACKET SL SCH (09:48)
[2023-01-25] MEDS: PRENATAL VITAMINS W/ FOLIC ACID TABLET (FP) PO SCH (09:48)
[2023-01-25] MEDS: NICOTINE 21 MG/24 HOURS TOPICAL PATCH TD SCH (09:48)
[2023-01-25] MEDS: ASPIRIN 81 MG CHEWABLE TABLETS PO SCH (09:48)
[2023-01-25] MEDS: FAMOTIDINE 20 MG TABLET PO SCH (09:48)
[2023-01-25] MEDS: OLANZapine 10 MG TABLET PO SCH ×2 (09:49→21:53)
[2023-01-25] MEDS: ACETAMINOPHEN 325 MG TABLET (FP) PO PRN (13:27)
[2023-01-25] MEDS: cloNIDine HCL 0.1 MG TABLET PO PRN (17:16)
[2023-01-25] MEDS: MELATONIN 5 MG TABLETS PO SCH (21:53)
[2023-01-25] MEDS: THIAMINE HCL 100 MG TABLET (FP) PO SCH (21:53)
[2023-01-25] MEDS: ATORVASTATIN CA 40 MG TABLET (FP) PO SCH (21:53)
[2023-01-25] MEDS: traZODone HCL 50 MG TABLET (FP) PO SCH (21:53)
[2023-01-26] MEDS: GABAPENTIN 300 MG CAPSULE PO SCH ×3 (06:36→22:19)
[2023-01-26] MEDS: cloNIDine HCL 0.1 MG TABLET PO PRN (07:28)
[2023-01-26] MEDS: ASPIRIN 81 MG CHEWABLE TABLETS PO SCH (09:52)
[2023-01-26] MEDS: OLANZapine 10 MG TABLET PO SCH ×2 (09:52→22:27)
[2023-01-26] MEDS: FAMOTIDINE 20 MG TABLET PO SCH (09:52)
[2023-01-26] MEDS: PRENATAL VITAMINS W/ FOLIC ACID TABLET (FP) PO SCH (09:52)
[2023-01-26] MEDS: NICOTINE 21 MG/24 HOURS TOPICAL PATCH TD SCH (09:52)
[2023-01-26] MEDS: BUPRENORPHINE/NALOXONE 2 MG/0.5 MG FILM PACKET SL SCH (09:53)
[2023-01-26] MEDS: LACTULOSE 20 GM/30 ML UDC (FOR ORAL USE ONLY) PO SCH ×2 (13:25→22:18)
[2023-01-26] MEDS: HYDROCORTISONE 2.5% TOPICAL CREAM 30 GM TUBE RC SCH (22:19)
[2023-01-26] MEDS: traZODone HCL 50 MG TABLET (FP) PO SCH (22:19)
[2023-01-26] MEDS: ATORVASTATIN CA 40 MG TABLET (FP) PO SCH (22:19)
[2023-01-26] MEDS: MELATONIN 5 MG TABLETS PO SCH (22:19)
[2023-01-26] MEDS: THIAMINE HCL 100 MG TABLET (FP) PO SCH (22:19)
[2023-01-27] MEDS: GABAPENTIN 300 MG CAPSULE PO SCH ×3 (06:50→22:26)
[2023-01-27] MEDS: LACTULOSE 20 GM/30 ML UDC (FOR ORAL USE ONLY) PO SCH (06:50)
[2023-01-27] MEDS: PRENATAL VITAMINS W/ FOLIC ACID TABLET (FP) PO SCH (09:51)
[2023-01-27] MEDS: NICOTINE 21 MG/24 HOURS TOPICAL PATCH TD SCH (09:52)
[2023-01-27] MEDS: FAMOTIDINE 20 MG TABLET PO SCH (09:52)
[2023-01-27] MEDS: BUPRENORPHINE/NALOXONE 2 MG/0.5 MG FILM PACKET SL SCH (09:52)
[2023-01-27] MEDS: ASPIRIN 81 MG CHEWABLE TABLETS PO SCH (09:52)
[2023-01-27] MEDS: OLANZapine 10 MG TABLET PO SCH ×2 (09:54→22:50)
[2023-01-27] MEDS ORDERED: ONDANSETRON *ODT* 4 MG TABLET SL PRN (12:58)
[2023-01-27] MEDS: HYDROCORTISONE 2.5% TOPICAL CREAM 30 GM TUBE RC SCH (22:23)
[2023-01-27] MEDS: THIAMINE HCL 100 MG TABLET (FP) PO SCH (22:26)
[2023-01-27] MEDS: MELATONIN 5 MG TABLETS PO SCH (22:26)
[2023-01-27] MEDS: ATORVASTATIN CA 40 MG TABLET (FP) PO SCH (22:26)
[2023-01-27] MEDS: traZODone HCL 50 MG TABLET (FP) PO SCH (22:26)
[2023-01-27] MEDS: RIFAXIMIN 550 MG TABLET PO SCH (22:50)
[2023-01-28] MEDS: GABAPENTIN 300 MG CAPSULE PO SCH ×3 (06:12→21:19)
[2023-01-28] MEDS ORDERED: PANTOPRAZOLE 20 MG TABLET PO SCH (10:00)
[2023-01-28] MEDS: NICOTINE 21 MG/24 HOURS TOPICAL PATCH TD SCH (10:05)
[2023-01-28] MEDS: BUPRENORPHINE/NALOXONE 2 MG/0.5 MG FILM PACKET SL SCH ×2 (10:05→22:00)
[2023-01-28] MEDS: PRENATAL VITAMINS W/ FOLIC ACID TABLET (FP) PO SCH (10:05)
[2023-01-28] MEDS: ASPIRIN 81 MG CHEWABLE TABLETS PO SCH (10:05)
[2023-01-28] MEDS: OLANZapine 10 MG TABLET PO SCH ×2 (10:05→21:19)
[2023-01-28] MEDS: PANTOPRAZOLE 40 MG TABLET PO SCH (10:06)
[2023-01-28] MEDS: LIDOCAINE 4% PATCH TP SCH (10:06)
[2023-01-28] MEDS: RIFAXIMIN 550 MG TABLET PO SCH ×2 (10:37→21:18)
[2023-01-28 10:56] LABS: BASO % 0.4 % (0-2.0); EOS % 3.4 % (0-4.5); HEMATOCRIT 37.9 % (35.4-49); HEMOGLOBIN 12.1 GM/dL (11.7-16.9); LYMPH % 24.1 % (8-40); MCH 28.6 pg (25.7-33.7); MEAN CELL VOLUME 89.4 fl (80-96); NEUT % 60.1 % (42.8-82.8); PLATELET COUNT 132 10^3/uL (134-434); RBC 4.24 M/mm3 (4.00-5.60); RDW 14.8 % (11.9-15.9); WHITE BLOOD COUNT 6.2 K/mm3 (4.0-10.0)
[2023-01-28 11:00] LABS: POTASSIUM 4.4 mmol/L (3.5-5.1)
[2023-01-28 11:03] LABS: ALBUMIN 3.1 g/dl (3.4-5.0); BLOOD UREA NITROGEN 23.3 mg/dL (7-18); CALCIUM 8.4 mg/dL (8.5-10.1)
[2023-01-28 11:09] LABS: CREATININE 0.6 mg/dL (0.55-1.3)
[2023-01-28 11:10] LABS: BILIRUBIN,TOTAL 0.2 mg/dL (0.2-1)
[2023-01-28] MEDS: traZODone HCL 50 MG TABLET (FP) PO SCH (21:18)
[2023-01-28] MEDS: ATORVASTATIN CA 40 MG TABLET (FP) PO SCH (21:18)
[2023-01-28] MEDS: THIAMINE HCL 100 MG TABLET (FP) PO SCH (21:19)
[2023-01-28] MEDS: MELATONIN 5 MG TABLETS PO SCH (21:19)
[2023-01-28] MEDS: HYDROCORTISONE 2.5% TOPICAL CREAM 30 GM TUBE RC SCH (21:20)
[2023-01-28] MEDS ORDERED: LIDOCAINE PATCH REMOVAL MC SCH (22:00)
[2023-01-29] MEDS: GABAPENTIN 300 MG CAPSULE PO SCH (06:27)
[2023-01-29 07:14] VITALS: BP 127/66; PULSE 86; RESP 16; TEMP 97.8
[2023-01-29] MEDS: PRENATAL VITAMINS W/ FOLIC ACID TABLET (FP) PO SCH (09:49)
[2023-01-29] MEDS: NICOTINE 21 MG/24 HOURS TOPICAL PATCH TD SCH (09:50)
[2023-01-29] MEDS: LIDOCAINE 4% PATCH TP SCH (09:50)
[2023-01-29] MEDS: ASPIRIN 81 MG CHEWABLE TABLETS PO SCH (09:50)
[2023-01-29] MEDS: RIFAXIMIN 550 MG TABLET PO SCH (09:50)
[2023-01-29] MEDS: BUPRENORPHINE/NALOXONE 2 MG/0.5 MG FILM PACKET SL SCH (09:51)
[2023-01-29] MEDS: OLANZapine 10 MG TABLET PO SCH (09:51)
[2023-01-29] MEDS: PANTOPRAZOLE 40 MG TABLET PO SCH (09:52)
== END 2023-01-29 10:31 | disposition home or self-care (01) | DRG 772 ==
LOC: YASAS 11:05 → Y5N 18:27
PROVIDERS: ADMIT Allergy & Immunology; ATTEND Psychiatry & Neurology Pain Medicine
PROC: HZ42ZZZ Group Counseling for Substance Abuse Treatment, Cognitive-Behavioral (ICD-10-PCS; principal; 2023-01-15)
DX: F10.20 Alcohol dependence, uncomplicated (principal); F11.20 Opioid dependence, uncomplicated; F14.20 Cocaine dependence, uncomplicated; F17.210 Nicotine dependence, cigarettes, uncomplicated; F20.9 Schizophrenia, unspecified; F41.9 Anxiety disorder, unspecified; F32.A Depression, unspecified; E72.20 Disorder of urea cycle metabolism, unspecified; G40.909 Epilepsy, unspecified, not intractable, without status epilepticus; J43.0 Unilateral pulmonary emphysema [MacLeod's syndrome]; J45.20 Mild intermittent asthma, uncomplicated; K21.9 Gastro-esophageal reflux disease without esophagitis; M54.50 Low back pain, unspecified; G89.29 Other chronic pain; Z87.11 Personal history of peptic ulcer disease; Z86.79 Personal history of other diseases of the circulatory system; Z86.11 Personal history of tuberculosis; Z88.8 Allergy status to other drugs, medicaments and biological substances
CPT/HCPCS: 36415; 80053; 80307; 81003; 82140; 82962; 85025; 85027; 86780; 86803; 87635; 87811

== ENCOUNTER 2023-01-19 19:25 | Emergency (ER) | payer OTHER ==
[2023-01-19 19:48] VITALS: BP 143/82; PULSE 84; RESP 19; TEMP 98.3; BMI 18.1
[2023-01-19] MEDS ORDERED: ACETAMINOPHEN 1000 MG/100 ML BAG IVPB ONE (20:23)
[2023-01-19] MEDS ORDERED: ACETAMINOPHEN INJECTION 100 ML IVPB ONE (20:45)
[2023-01-19 21:38] LABS: BASO % 1.1 % (0-2.0); EOS % 3.9 % (0-4.5); HEMATOCRIT 38.2 % (35.4-49); HEMOGLOBIN 12.4 GM/dL (11.7-16.9); LYMPH % 25.4 % (8-40); MCH 28.6 pg (25.7-33.7); MCHC 32.4 g/dl (32.0-35.9); MEAN CELL VOLUME 88.3 fl (80-96); MEAN PLT VOLUME 8.8 fl (7.5-11.1); MONO % 9.1 % (3.8-10.2); NEUT % 60.5 % (42.8-82.8); PLATELET COUNT 149 10^3/uL (134-434); RBC 4.33 M/mm3 (4.00-5.60); RDW 15.4 % (11.9-15.9)
[2023-01-19 21:53] LABS: POTASSIUM 4.1 mmol/L (3.5-5.1)
[2023-01-19 21:55] LABS: CALCIUM 8.4 mg/dL (8.5-10.1)
[2023-01-19 21:56] LABS: ALBUMIN 3.4 g/dl (3.4-5.0); BLOOD UREA NITROGEN 24.4 mg/dL (7-18); MAGNESIUM 2.1 mg/dL (1.8-2.4)
[2023-01-19 22:00] LABS: CREATININE 0.7 mg/dL (0.55-1.3); TOT PROT 6.5 g/dl (6.4-8.2)
[2023-01-19 22:01] LABS: BILIRUBIN,TOTAL 0.2 mg/dL (0.2-1)
[2023-01-19 22:28] LABS: PH,URINE 5.5 (5.0-8.0); URINE APPEARANCE CLEAR; URINE BILIRUBIN NEGATIVE (NEGATIVE); URINE COLOR YELLOW; URINE GLUCOSE (UA) NEGATIVE (NEGATIVE); URINE KETONE TRACE (NEGATIVE); URINE LEUK ESTERASE NEGATIVE (NEGATIVE); URINE NITRITE NEGATIVE (NEGATIVE); URINE PROTEIN NEGATIVE (NEGATIVE)
== END 2023-01-20 00:01 | disposition short-term general hospital (02) ==
LOC: JER 19:25
PROC: 3E033NZ Introduction of Analgesics, Hypnotics, Sedatives into Peripheral Vein, Percutaneous Approach (ICD-10-PCS; principal; 2023-01-19)
DX: G40.909 Epilepsy, unspecified, not intractable, without status epilepticus (principal); M25.511 Pain in right shoulder
CPT/HCPCS: 36415; 70450-TC; 72125-TC; 73000-TC-RT-FY; 73030-TC-RT-FY; 73060-TC-RT-FY; 80053; 81003; 82550; 82553; 83735; 85025; 87086; 93005; 93010; 99285-25

== ENCOUNTER 2023-03-02 14:28 | Inpatient (IN) | payer OTHER ==
[2023-03-02 14:47] VITALS: RESP 16; BMI 28.7
[2023-03-02] MEDS ORDERED: ALBUTEROL SO4 HFA INHALER IH PRN (18:30)
[2023-03-02] MEDS ORDERED: BENZONATATE 200 MG CAPSULE PO PRN (18:54)
[2023-03-02] MEDS ORDERED: IBUPROFEN 600 MG TABLET (FP) PO PRN (18:54)
[2023-03-02] MEDS ORDERED: ONDANSETRON *ODT* 4 MG TABLET SL PRN (18:54)
[2023-03-02] MEDS ORDERED: guaiFENesin 600 MG TABLET.ER (FP) PO PRN (18:54)
[2023-03-02] MEDS ORDERED: MAG HYDROX/AL HYDROX/SIMETH 30 ML UNIT-DOSE CUP PO PRN (18:54)
[2023-03-02] MEDS ORDERED: DICYCLOMINE HCL 10 MG CAPSULE PO PRN (18:54)
[2023-03-02] MEDS ORDERED: POLYETHYLENE GLYCOL (HEALTHYLAX) 3350 17 GM PACKET PO PRN (18:54)
[2023-03-02] MEDS ORDERED: LOPERAMIDE HCL 2 MG CAPSULE PO PRN (18:54)
[2023-03-02] MEDS ORDERED: ACETAMINOPHEN 325 MG TABLET (FP) PO PRN (18:54)
[2023-03-02] MEDS ORDERED: NALOXONE HCL (KLOXXADO) 8 MG SPRAY NS PRN (18:54)
[2023-03-02] MEDS ORDERED: BISMUTH SUBSALICYLATE 524 MG/30 ML PO PRN (18:54)
[2023-03-02] MEDS ORDERED: MAGNESIUM HYDROX 2400MG/30ML ORAL SUSPENSION 30 ML CUP PO PRN (18:54)
[2023-03-02] MEDS ORDERED: METHOCARBAMOL 500 MG TABLET PO PRN (18:54)
[2023-03-02] MEDS ORDERED: NALOXONE HCL 0.4 MG/ML VIAL IM PRN (18:54)
[2023-03-02] MEDS ORDERED: BENZOCAINE/MENTHOL (CHLORASEPTIC ) LOZENGE MM PRN (18:54)
[2023-03-02] MEDS ORDERED: IBUPROFEN 400 MG TABLET (FP) PO PRN (18:54)
[2023-03-02] MEDS ORDERED: diazePAM 5 MG TABLET PO PRN (18:56)
[2023-03-02] MEDS ORDERED: ASPIRIN 81 MG CHEWABLE TABLETS ONE (19:16)
[2023-03-02] MEDS: ASPIRIN 81 MG CHEWABLE TABLETS PO SCH (19:25)
[2023-03-02] MEDS ORDERED: levETIRAcetam XR 750 MG TAB PO SCH (22:00)
[2023-03-02] MEDS: MELATONIN 5 MG TABLETS PO SCH (22:38)
[2023-03-02] MEDS: THIAMINE HCL 100 MG TABLET (FP) PO SCH (22:39)
[2023-03-02] MEDS: GABAPENTIN 300 MG CAPSULE PO SCH (22:40)
[2023-03-02] MEDS: diazePAM 5 MG TABLET PO SCH (22:40)
[2023-03-03] MEDS: GABAPENTIN 300 MG CAPSULE PO SCH ×3 (05:35→22:51)
[2023-03-03] MEDS: diazePAM 5 MG TABLET PO SCH (05:35)
[2023-03-03] MEDS ORDERED: PANTOPRAZOLE 40 MG TABLET PO SCH (08:00)
[2023-03-03] MEDS ORDERED: guaiFENesin 200 MG/10 ML 10 ML UNIT-DOSE CUPS PO PRN (09:35)
[2023-03-03 09:48] VITALS: BP 163/82; PULSE 101; TEMP 97.6
[2023-03-03] MEDS ORDERED: chlordiazePOXIDE HCL 25 MG CAPSULE PO PRN (09:59)
[2023-03-03] MEDS ORDERED: FOLIC ACID 1 MG TABLET (FP) PO SCH (10:00)
[2023-03-03] MEDS ORDERED: PRENATAL VITAMINS W/ FOLIC ACID TABLET (FP) PO SCH (10:00)
[2023-03-03] MEDS: ASPIRIN 81 MG CHEWABLE TABLETS PO SCH (12:06)
[2023-03-03] MEDS: chlordiazePOXIDE HCL 25 MG CAPSULE PO SCH ×3 (12:07→22:52)
[2023-03-03] MEDS: MELATONIN 5 MG TABLETS PO SCH (22:51)
[2023-03-03] MEDS: THIAMINE HCL 100 MG TABLET (FP) PO SCH (22:52)
[2023-03-04] MEDS ORDERED: diazePAM 5 MG TABLET PO SCH (06:00)
[2023-03-05] MEDS ORDERED: chlordiazePOXIDE HCL 25 MG CAPSULE PO SCH (05:00)
[2023-03-05] MEDS ORDERED: diazePAM 5 MG TABLET PO SCH (06:00)
[2023-03-06] MEDS ORDERED: chlordiazePOXIDE HCL 10 MG CAPSULE PO PRN
[2023-03-06] MEDS ORDERED: chlordiazePOXIDE HCL 10 MG CAPSULE PO SCH (05:00)
[2023-03-06] MEDS ORDERED: diazePAM 5 MG TABLET PO ONE (06:00)
[2023-03-07] MEDS ORDERED: chlordiazePOXIDE HCL 10 MG CAPSULE PO SCH (05:00)
[2023-03-08] MEDS ORDERED: chlordiazePOXIDE HCL 10 MG CAPSULE PO ONE (05:00)
== END 2023-03-04 | disposition short-term general hospital (02) | DRG 775 ==
LOC: YASAS 14:28 → Y3N 19:15
PROVIDERS: ADMIT Allergy & Immunology; ATTEND Allergy & Immunology
PROC: HZ2ZZZZ Detoxification Services for Substance Abuse Treatment (ICD-10-PCS; principal; 2023-03-02)
DX: F10.230 Alcohol dependence with withdrawal, uncomplicated (principal); F12.20 Cannabis dependence, uncomplicated; F17.210 Nicotine dependence, cigarettes, uncomplicated; F31.9 Bipolar disorder, unspecified; F20.9 Schizophrenia, unspecified; F41.9 Anxiety disorder, unspecified; J44.9 Chronic obstructive pulmonary disease, unspecified; K21.9 Gastro-esophageal reflux disease without esophagitis; R56.9 Unspecified convulsions; Z86.11 Personal history of tuberculosis; Z86.79 Personal history of other diseases of the circulatory system; Z88.8 Allergy status to other drugs, medicaments and biological substances
CPT/HCPCS: 82962; 87635

== ENCOUNTER 2023-03-03 10:45 | Inpatient (IN) | payer OTHER ==
[2023-03-03] MEDS ORDERED: levETIRAcetam 500 MG/5 ML INJECTION VIAL IVPB ONE ×3 (10:53→21:18)
[2023-03-03 11:30] LABS: HEMATOCRIT 39.4 % (35.4-49); HEMOGLOBIN 12.8 GM/dL (11.7-16.9); MCH 28.1 pg (25.7-33.7); MCHC 32.4 g/dl (32.0-35.9); MEAN CELL VOLUME 86.7 fl (80-96); MEAN PLT VOLUME 8.6 fl (7.5-11.1); PLATELET COUNT 190 10^3/uL (134-434); RBC 4.55 M/mm3 (4.00-5.60); RDW 14.1 % (11.9-15.9); WHITE BLOOD COUNT 6.5 K/mm3 (4.0-10.0)
[2023-03-03 11:51] VITALS: BMI 23.1
[2023-03-03 11:54] LABS: POTASSIUM 3.9 mmol/L (3.5-5.1)
[2023-03-03 11:56] LABS: BLOOD UREA NITROGEN 16.9 mg/dL (7-18); CALCIUM 9.1 mg/dL (8.5-10.1)
[2023-03-03 11:57] LABS: ALBUMIN 2.9 g/dl (3.4-5.0)
[2023-03-03 12:00] LABS: CREATININE 0.8 mg/dL (0.55-1.3)
[2023-03-03 12:01] LABS: BILIRUBIN,TOTAL 0.2 mg/dL (0.2-1); TOT PROT 6.5 g/dl (6.4-8.2)
[2023-03-03] MEDS ORDERED: chlordiazePOXIDE HCL 25 MG CAPSULE PO PRN (13:40)
[2023-03-03] MEDS ORDERED: ONDANSETRON 4 MG/2 ML VIAL IVPUSH PRN (13:41)
[2023-03-03] MEDS ORDERED: ALBUTEROL SO4 HFA INHALER IH PRN (14:07)
[2023-03-03] MEDS ORDERED: NICOTINE 21 MG/24 HOURS TOPICAL PATCH ONE (15:02)
[2023-03-03] MEDS: NICOTINE 21 MG/24 HOURS TOPICAL PATCH TD SCH (15:24)
[2023-03-03] MEDS ORDERED: chlordiazePOXIDE HCL 25 MG CAPSULE ONE ×2 (17:10→23:13)
[2023-03-03] MEDS ORDERED: GABAPENTIN 400 MG CAPSULE ONE (17:11)
[2023-03-03] MEDS ORDERED: GABAPENTIN 100 MG CAPSULE ONE (17:11)
[2023-03-03] MEDS: chlordiazePOXIDE HCL 25 MG CAPSULE PO SCH ×2 (17:33→23:08)
[2023-03-03] MEDS: GABAPENTIN 300 MG CAPSULE PO SCH ×2 (17:33→23:08)
[2023-03-03] MEDS ORDERED: ATORVASTATIN CA 40 MG TABLET (FP) ONE ×2 (21:17→21:19)
[2023-03-03] MEDS ORDERED: SENNOSIDES 8.6MG TABLET (FP) PO ONE (21:17)
[2023-03-03] MEDS ORDERED: levETIRAcetam 500 MG/5 ML INJECTION VIAL IVPB SCH (22:00)
[2023-03-03] MEDS ORDERED: OLANZapine 7.5 MG TABLET PO SCH (22:00)
[2023-03-03] MEDS ORDERED: SENNOSIDES 8.6MG TABLET (FP) PO SCH (22:00)
[2023-03-03] MEDS ORDERED: ATORVASTATIN CA 40 MG TABLET (FP) PO SCH (22:00)
[2023-03-03] MEDS: FLUTICASONE/SALMETEROL (WIXELA) 100 MCG/50 MCG DISKUS IH SCH (23:26)
[2023-03-03] MEDS: OLANZAPINE 10 MG, OLANZAPINE 5 MG PO SCH (23:27)
[2023-03-04] MEDS: chlordiazePOXIDE HCL 25 MG CAPSULE PO SCH ×2 (06:00→11:24)
[2023-03-04] MEDS ORDERED: chlordiazePOXIDE HCL 25 MG CAPSULE ONE ×2 (06:21→11:21)
[2023-03-04] MEDS: FLUTICASONE/SALMETEROL (WIXELA) 100 MCG/50 MCG DISKUS IH SCH (09:52)
[2023-03-04] MEDS: NICOTINE 21 MG/24 HOURS TOPICAL PATCH TD SCH (09:53)
[2023-03-04] MEDS: GABAPENTIN 300 MG CAPSULE PO SCH (09:53)
[2023-03-04 09:58] VITALS: RESP 19
[2023-03-04] MEDS ORDERED: levETIRAcetam 500 MG TABLET (FP) PO SCH ×2 (10:00)
[2023-03-04] MEDS ORDERED: PANTOPRAZOLE SODIUM 40 MG VIAL IVPUSH SCH (10:00)
[2023-03-04] MEDS ORDERED: FOLIC ACID 1 MG TABLET (FP) PO SCH (10:00)
[2023-03-04] MEDS ORDERED: ASPIRIN 81 MG CHEWABLE TABLETS PO SCH (10:00)
[2023-03-04] MEDS ORDERED: THIAMINE HCL 100 MG TABLET (FP) PO SCH (10:00)
[2023-03-04] MEDS ORDERED: ENOXAPARIN NA (PORCINE) 40 MG/0.4 ML DISP.SYRIN SQ SCH (10:00)
[2023-03-04] MEDS: OLANZAPINE 10 MG, OLANZAPINE 5 MG PO SCH (10:46)
[2023-03-04 12:17] LABS: BASO % 0.7 % (0-2.0); EOS % 3.3 % (0-4.5); HEMATOCRIT 37.5 % (35.4-49); HEMOGLOBIN 12.7 GM/dL (11.7-16.9); LYMPH % 22.9 % (8-40); MCH 28.7 pg (25.7-33.7); MCHC 33.8 g/dl (32.0-35.9); MEAN CELL VOLUME 84.9 fl (80-96); MEAN PLT VOLUME 8.4 fl (7.5-11.1); MONO % 6.1 % (3.8-10.2); PLATELET COUNT 196 10^3/uL (134-434); RBC 4.42 M/mm3 (4.00-5.60); RDW 14.2 % (11.9-15.9); WHITE BLOOD COUNT 6.4 K/mm3 (4.0-10.0)
[2023-03-04 12:18] VITALS: BP 123/66; PULSE 78; TEMP 98
[2023-03-04 12:39] LABS: POTASSIUM 4.1 mmol/L (3.5-5.1)
[2023-03-04 12:42] LABS: BLOOD UREA NITROGEN 12.7 mg/dL (7-18); CALCIUM 8.9 mg/dL (8.5-10.1); MAGNESIUM 2.1 mg/dL (1.8-2.4)
[2023-03-04 12:46] LABS: CREATININE 0.8 mg/dL (0.55-1.3); PHOSPHOROUS 3.4 mg/dL (2.5-4.9)
[2023-03-04 12:47] LABS: BILIRUBIN,TOTAL 0.5 mg/dL (0.2-1); TOT PROT 6.4 g/dl (6.4-8.2)
[2023-03-05] MEDS ORDERED: chlordiazePOXIDE HCL 25 MG CAPSULE PO SCH (05:00)
[2023-03-06] MEDS ORDERED: chlordiazePOXIDE HCL 10 MG CAPSULE PO PRN
[2023-03-06] MEDS ORDERED: chlordiazePOXIDE HCL 10 MG CAPSULE PO SCH (05:00)
[2023-03-07] MEDS ORDERED: chlordiazePOXIDE HCL 10 MG CAPSULE PO SCH (05:00)
[2023-03-08] MEDS ORDERED: chlordiazePOXIDE HCL 10 MG CAPSULE PO ONE (05:00)
== END 2023-03-04 12:11 | disposition other institution (70) | DRG 775 ==
LOC: JER 10:45 → JERBED 13:00 → OBSVTOIN 13:40
PROVIDERS: ADMIT Internal Medicine; ATTEND Internal Medicine
PROC: HZ2ZZZZ Detoxification Services for Substance Abuse Treatment (ICD-10-PCS; principal; 2023-03-03)
DX: F10.230 Alcohol dependence with withdrawal, uncomplicated (principal); I47.10 Supraventricular tachycardia, unspecified; R56.9 Unspecified convulsions; F20.9 Schizophrenia, unspecified; F17.210 Nicotine dependence, cigarettes, uncomplicated; F32.A Depression, unspecified; I10 Essential (primary) hypertension; J44.9 Chronic obstructive pulmonary disease, unspecified; K21.9 Gastro-esophageal reflux disease without esophagitis
CPT/HCPCS: 36415; 70450-TC; 80053; 83735; 84100; 85025; 85027; 93005; 93010; 99285-25; G0378

== ENCOUNTER 2023-03-04 13:07 | Inpatient (IN) | payer OTHER ==
[2023-03-04 14:31] VITALS: BMI 29.2
[2023-03-04] MEDS ORDERED: ACETAMINOPHEN 325 MG TABLET (FP) PO PRN (16:46)
[2023-03-04] MEDS ORDERED: MAG HYDROX/AL HYDROX/SIMETH 30 ML UNIT-DOSE CUP PO PRN (16:46)
[2023-03-04] MEDS ORDERED: BISMUTH SUBSALICYLATE 524 MG/30 ML PO PRN (16:46)
[2023-03-04] MEDS ORDERED: chlordiazePOXIDE HCL 25 MG CAPSULE PO PRN (16:46)
[2023-03-04] MEDS ORDERED: DICYCLOMINE HCL 10 MG CAPSULE PO PRN (16:46)
[2023-03-04] MEDS ORDERED: POLYETHYLENE GLYCOL (HEALTHYLAX) 3350 17 GM PACKET PO PRN (16:46)
[2023-03-04] MEDS ORDERED: NICOTINE POLACRILEX 2 MG GUM BUC PRN (16:46)
[2023-03-04] MEDS ORDERED: ONDANSETRON *ODT* 4 MG TABLET SL PRN (16:46)
[2023-03-04] MEDS ORDERED: LOPERAMIDE HCL 2 MG CAPSULE PO PRN (16:46)
[2023-03-04] MEDS ORDERED: BENZOCAINE/MENTHOL (CHLORASEPTIC ) LOZENGE MM PRN (16:46)
[2023-03-04] MEDS ORDERED: IBUPROFEN 400 MG TABLET (FP) PO PRN (16:46)
[2023-03-04] MEDS ORDERED: MAGNESIUM HYDROX 2400MG/30ML ORAL SUSPENSION 30 ML CUP PO PRN (16:46)
[2023-03-04] MEDS ORDERED: IBUPROFEN 600 MG TABLET (FP) PO PRN (16:46)
[2023-03-04] MEDS ORDERED: guaiFENesin 600 MG TABLET.ER (FP) PO PRN (16:46)
[2023-03-04] MEDS ORDERED: BENZONATATE 200 MG CAPSULE PO PRN (16:46)
[2023-03-04] MEDS ORDERED: METHOCARBAMOL 500 MG TABLET PO PRN (16:46)
[2023-03-04] MEDS ORDERED: ALBUTEROL SO4 HFA INHALER IH PRN (16:47)
[2023-03-04] MEDS ORDERED: SENNOSIDES 8.6MG TABLET (FP) PO PRN (17:43)
[2023-03-04 17:51] VITALS: RESP 18
[2023-03-04] MEDS: chlordiazePOXIDE HCL 25 MG CAPSULE PO SCH ×2 (18:12→23:36)
[2023-03-04 20:39] VITALS: BP 126/64; PULSE 88; TEMP 98.4
[2023-03-04] MEDS ORDERED: MELATONIN 5 MG TABLETS PO SCH (22:00)
[2023-03-04] MEDS ORDERED: ATORVASTATIN CA 40 MG TABLET (FP) PO SCH (22:00)
[2023-03-04] MEDS ORDERED: FLUTICASONE/SALMETEROL (WIXELA) 100 MCG/50 MCG DISKUS IH SCH (22:00)
[2023-03-04] MEDS ORDERED: THIAMINE HCL 100 MG TABLET (FP) PO SCH (22:00)
[2023-03-04] MEDS ORDERED: levETIRAcetam 500 MG TABLET (FP) PO SCH (22:00)
[2023-03-04] MEDS: GABAPENTIN 300 MG CAPSULE PO SCH (23:35)
[2023-03-05] MEDS: chlordiazePOXIDE HCL 25 MG CAPSULE PO SCH (06:23)
[2023-03-05] MEDS: GABAPENTIN 300 MG CAPSULE PO SCH (06:24)
[2023-03-05] MEDS ORDERED: PANTOPRAZOLE 40 MG TABLET PO SCH (10:00)
[2023-03-05] MEDS ORDERED: FOLIC ACID 1 MG TABLET (FP) PO SCH (10:00)
[2023-03-05] MEDS ORDERED: PRENATAL VITAMINS W/ FOLIC ACID TABLET (FP) PO SCH (10:00)
[2023-03-05] MEDS ORDERED: ASPIRIN 81 MG CHEWABLE TABLETS PO SCH (10:00)
[2023-03-06] MEDS ORDERED: chlordiazePOXIDE HCL 25 MG CAPSULE PO SCH (05:00)
[2023-03-07] MEDS ORDERED: chlordiazePOXIDE HCL 10 MG CAPSULE PO PRN
[2023-03-07] MEDS ORDERED: chlordiazePOXIDE HCL 10 MG CAPSULE PO SCH (05:00)
[2023-03-08] MEDS ORDERED: chlordiazePOXIDE HCL 10 MG CAPSULE PO SCH (05:00)
[2023-03-09] MEDS ORDERED: chlordiazePOXIDE HCL 10 MG CAPSULE PO ONE (05:00)
== END 2023-03-05 08:46 | disposition short-term general hospital (02) | DRG 775 ==
LOC: YASAS 13:07 → Y3N 16:57
PROVIDERS: ADMIT Allergy & Immunology; ATTEND Surgery
PROC: HZ2ZZZZ Detoxification Services for Substance Abuse Treatment (ICD-10-PCS; principal; 2023-03-04)
DX: F10.230 Alcohol dependence with withdrawal, uncomplicated (principal); F12.20 Cannabis dependence, uncomplicated; F17.210 Nicotine dependence, cigarettes, uncomplicated; R33.9 Retention of urine, unspecified; S09.90XA Unspecified injury of head, initial encounter; M25.551 Pain in right hip; W01.190A Fall on same level from slipping, tripping and stumbling with subsequent striking against furniture, initial encounter; Y92.230 Patient room in hospital as the place of occurrence of the external cause

== ENCOUNTER 2023-03-04 21:11 | Emergency (ER) | payer OTHER ==
[2023-03-04] MEDS ORDERED: ONDANSETRON *ODT* 4 MG TABLET SL ONE (21:43)
[2023-03-04] MEDS ORDERED: ONDANSETRON *ODT* 4 MG TABLET ONE (21:47)
[2023-03-04 22:05] VITALS: RESP 18; TEMP 98.6; BMI 25.1
[2023-03-05 00:43] VITALS: BP 121/74; PULSE 74
== END 2023-03-05 00:56 | disposition short-term general hospital (02) ==
LOC: JER 21:11
DX: R32 Unspecified urinary incontinence (principal); R51.9 Headache, unspecified; R53.83 Other fatigue; R42 Dizziness and giddiness; R11.2 Nausea with vomiting, unspecified; W06.XXXA Fall from bed, initial encounter; Y93.89 Activity, other specified; Y92.003 Bedroom of unspecified non-institutional (private) residence as the place of occurrence of the external cause
CPT/HCPCS: 70450-TC; 70486-TC; 72125-TC; 99285-25; Q0162